=== PATIENT | female | born 1945 | race Caucasian/White ===

== ENCOUNTER 2017-04-01 09:23 | Observation (INO) | payer MEDICARE, BC ==
--- NOTE | ~2017-04-01 | DS ---
Unit #: [id number] #: [id number] Patient: NICOLAAS BLANCO [id number] [address] [id number] I MR#: [id number] NAME: NICOLASA BLANCO. ROOM: [facility] Age: 71 Sex: F Admission Date: 04/01/2017 : 1945 Discharge Date: 04/03/2017 Attending Physician: Leo Lazaro M.D. Primary Care Physician: No Primary Care Physician DISCHARGE SUMMARY DISCHARGE DIAGNOSES 1. Urinary tract infection. 2. Dizziness. 3. Reflux. 4. Hypertension. HOSPITAL COURSE The patient is a 71-year-old female who presents to [facility] emergency department complaining of some dizziness. She stated, additionally, that she had been having some dysuria and was on an antibiotic for a urinary tract infection but was not getting any better. Repeat UA in the emergency department showed what looked like continuing urinary tract infection and the patient was admitted for having failed outpatient therapy. The patient was started on Rocephin. At this time, she states that her dysuria has resolved. Given her resolution of dysuria on Rocephin, I will send her home on Keflex and followup on cultures which, at this time, only show Gram-negative rods without an available susceptibility. DISCHARGE MEDICATIONS 1. Lamictal 100 mg at bedtime. 2. Amitriptyline 75 mg at bedtime. 3. Zoloft 200 mg daily. 4. Abilify 5 mg daily. 5. Valium 10 mg p.o. q.i.d. as needed for anxiety. 6. Norvasc 10 mg daily. 7. Zocor 40 mg at bedtime. 8. Pepcid 40 mg at bedtime. 9. Tylenol #4 p.o. q.4 hours p.r.n. 10. Synthroid 100 mcg daily. 11. Keflex 500 mg, one p.o. t.i.d. x3 days. FOLLOWUP Patient to follow up with her primary care provider in one week. Dictated by... Leo Lazaro M.D. SERAFIN/ryan Unit #: [id number] #: [id number] Patient: NICOLASA BLANCO TD: 04/05/2017 07:33 JOB #: [id number] DISCHARGE SUMMARY Page 1 of 1 X Leo Lazaro MD X DISCHARGE SUMMARY
--- NOTE | ~2017-04-01 | EKG ---
PATIENT: NICOLASA BLANCO UNIT #: [id number] Ventricular Rate: 86 BPM Atrial Rate: 86 BPM P-R Interval: 134 ms QRS Duration: 84 ms Q-T Interval: 364 ms QTC Calculation(Bezet): 435 ms P [place]: 37 degrees Calculated R [place]: 53 degrees Calculated T [place]: 67 degrees Diagnosis Line: Normal sinus rhythm Diagnosis Line: Normal ECG Diagnosis Line: When compared with ECG of 09-NOV-2016 14:31, Diagnosis Line: No significant change was found Diagnosis Line: Confirmed by YANI FIGUEROA MD ([id number]) on Diagnosis Line: 04/01/2017 4:32:15 PM INTERPRETING MD: CAROLINA MAYORGA
--- NOTE | ~2017-04-01 | CR72 ---
[facility] A Service of [facility] RADIOLOGY TEXT RESULTS PATIENT: NICOLASA BLANCO LOCATION: [place] [address] : 43 UNIT #: [id number] AGE: [address]: Irene Neal MD SEX: F ORDER DR: [id number] [facility] [address] [place], [place] [address] [id number] E MR#: [id number] Acc #: [id number] NAME: NICOLASA BLANCO. : 1945 SEX: F STUDY DATE/TIME: 04/01/2017 10:01 UNIT: [facility] ROOM: STUDY DESCRIPTION: CR Chest Single View Portable Attending Physician: Niraj Aparicio D.O. Ordering Physician: Niraj Aparicio D.O. Primary Care Physician: No Primary Care Physician MEDICAL IMAGING REPORT This report is preliminary unless electronic signature is present EXAM Portable chest, 04/01/2017. HISTORY 71-year-old female with chest pain for 1 day. COMPARISON Chest, 06/19/2016. FINDINGS Frontal chest demonstrates patient significantly rotated to the right. Allowing for this, the lungs appear clear. No pneumothorax. Heart size and mediastinum are stable. IMPRESSION Rotated exam. Allowing for this, no acute chest findings. Dictated by... Jakub Horn M.D. THIS IS AN ELECTRONICALLY VERIFIED REPORT Jakub Horn M.D. at 04/02/2017 6:21 AM SHARAD/osvaldo TD: 04/01/2017 10:28 JOB #: [id number] MEDICAL IMAGING REPORT Page 1 of 1 COPY
--- NOTE | ~2017-04-01 | CT71 ---
[facility] A Service of [facility] RADIOLOGY TEXT RESULTS PATIENT: NICOLASA BLANCO LOCATION: [facility] 470-01 : 43 UNIT #: [id number] AGE: [address]: Irene Neal MD SEX: F ORDER DR: [id number] [facility] [address] [place], [place] [address] [id number] E MR#: [id number] Acc #: [id number] NAME: NICOLASA BLANCO : 1945 SEX: F STUDY DATE/TIME: 04/01/2017 11:07 UNIT: [facility] ROOM: STUDY DESCRIPTION: CT Head Wo Contrast Attending Physician: Niraj Aparicio D.O. Ordering Physician: Niraj Aparicio D.O. Primary Care Physician: No Primary Care Physician MEDICAL IMAGING REPORT This report is preliminary unless electronic signature is present EXAM Head CT without contrast. HISTORY Dizziness onset yesterday. TECHNIQUE Axial images were obtained without contrast and compared with 02/10/2014. This CT exam was performed with one or more of the following radiation dose reduction techniques: automatic exposure control, adjustment of mA and/or kV according to patient size, and iterative reconstruction. FINDINGS Mild atrophy is seen. There is no evidence of mass lesion, hemorrhage, or edema. An empty sella configuration is again noted and unchanged. Extraaxial structures are otherwise unremarkable. IMPRESSION Mild atrophy. Empty sella configuration. No acute findings and no changes since the previous scan. Dictated by... Orlando Sosa M.D. THIS IS AN ELECTRONICALLY VERIFIED REPORT Orlando Sosa M.D. at 04/02/2017 9:12 AM RLF/osvaldo TD: 04/01/2017 11:49 JOB #: [id number] [facility] A Service of [facility] & [facility] RADIOLOGY TEXT RESULTS PATIENT: NICOLASA BLANCO LOCATION: [facility] 470-01 : 43 UNIT #: [id number] AGE: [address]: Irene Neal MD SEX: F ORDER DR: MEDICAL IMAGING REPORT Page 1 of 1 COPY
--- NOTE | ~2017-04-01 | HP ---
Unit #: [id number] #: [id number] Patient: NICOLASA BLANCO [id number] [address] [address] [id number] I MR#: [id number] NAME: NICOLASA BLANCO. ROOM: [address] Age: 71 Sex: F Admission Date: 04/01/2017 : 1945 Attending Physician: Puja Jeffery M.D. Primary Care Physician: No Primary Care Physician HISTORY AND PHYSICAL CHIEF COMPLAINT Dizziness. HISTORY OF PRESENT ILLNESS The patient is a 71-year-old female with a history of hypertension, hyperlipidemia, hypothyroidism and depression, anxiety, brought to the emergency room complaining of dizziness. The patient described dizziness as a heaviness of the head. The patient also stated that the patient has microbic for urinary tract infection for the last nine days. The patient had a workup in the emergency room and was found to have a UTI with leukocyte esterase 1+, urine WBC of 5 to 10 and urine bacteria of 4+. The patient is being admitted for the above reasons. The patient has a history of benign positional vertigo and responded to meclizine. PAST MEDICAL HISTORY History of hypertension, hyperlipidemia, hypothyroidism, irritable bowel syndrome, GE reflux disease, depression, anxiety. PAST SURGICAL HISTORY Appendectomy, gallbladder surgery, partial hysterectomy, bladder repair and colonoscopy. SOCIAL HISTORY No history of smoking, alcohol or any illicit drug abuse. FAMILY HISTORY Remarkable for pancreatic cancer. ALLERGIES No known drug allergies. HOME MEDICATIONS 1. Abilify. 2. Zocor. 3. Zoloft. 4. Lamictal. 5. Synthroid. 6. Elavil. 7. Norvasc. 8. Pepcid. 9. Valium. 10. Tylenol #4. REVIEW OF SYSTEMS Unit #: [id number] #: [id number] Patient: NICOLASA BLANCO A 14-point review of systems was performed and only pertinent positive findings are described above. Remaining are negative. PHYSICAL EXAMINATION GENERAL APPEARANCE: The patient is sitting on a bed not in acute distress. VITAL SIGNS: Temperature 97.8. Pulse 93. Respiratory rate 16. Blood pressure 141/77. Sating 100% at room air. HEENT: Head: Atraumatic, normocephalic. ENT: Pupils equal, round, reacting to light and accommodation. Extraocular movements are intact. NECK: Supple. LUNGS: Decreased air entry at the bases. HEART: Regular rate and rhythm. ABDOMEN: Soft. Positive bowel sounds. EXTREMITIES: No cyanosis. No clubbing. NEUROLOGIC: Alert, awake, oriented. No gross focal motor deficit. DIAGNOSTIC STUDIES LABORATORY: Glucose 82, BUN 13, creatinine 0.6, sodium 140, potassium 4.2, chloride 102, bicarb 30, calcium 9.5, total protein 7.9, albumin 4.8, AST 20, ALT 16, alkaline phosphatase 76. WBC 8, hemoglobin 14.5, hematocrit 45.3, platelets 257. UA shows 1+ leukocyte esterase, 4+ bacteria, 5 to 10 urine WBCs. IMAGING: Chest x-ray shows no acute chest finding and CT of the had shows mild atrophy, empty sella configuration. No acute findings and no changes from the previous scan. CARDIOVASCULAR: EKG shows normal sinus rhythm. ASSESSMENT 1. Dizziness. 2. UTI. PLAN To admit the patient to observation. Continue with IV antibiotics with Rocephin and continue with the symptomatic care with meclizine and Zofran for the nausea and vomiting. Further recommendations will follow. Dictated by Nolvia Jo TD: 04/01/2017 17:07 JOB #: [id number] HISTORY AND PHYSICAL Page 1 of 1 X X HISTORY AND PHYSICAL
[~2017-04-01 09:23] MED LIST: ABILIFY PO; ABILIFY10 MG PO; ABILIFY5 MG PO; ACIPHEX20 MG PO; ALBUTEROL17 GM INH; AMITRIPTYLINE H75 MG PO; AMITRYPTYLINE PO; ANTIVERT PO; ASPIRIN81 MG PO; ATENOLOL PO; ATENOLOL25 MG PO; CARAFATE PO; CENTRUM PO; CIPRO PO; CIPRO250 MG PO; COREG PO; DARVOCET-N 1001 TAB PO; DIAZEPAM PO; FLAGYL PO; FLEXERIL10 MG PO; FLOMAX0.4 M1 PO; KAPIDEX60 MG PO; KROGER PHARMACY; LAMICTAL PO; LAMICTAL25 MG PO; LORTAB 5/500 TA1 TA1 PO; MACROBID 100 M100 MG PO; MECLIZINE HCL12.5 MG PO; MIRALAX255 GM PO; NAPROXEN PO; NEURONTIN PO; NORVASC PO; NORVASC2.5 MG PO; OMNICEF PO; PERCOCET PO; PHENERGAN PO; PHENERGAN25 MG PO; PRILOSEC20 MG PO; PROTONIX; PROTONIX PO; PYRIDIUM PO; SENNA PO; SKELAXIN PO; SYNTHROID PO; SYNTHROID0.1 MG PO; TALWIN NX TABLE1 TAB PO; TOPAMAX PO; TYLENOL #4 PO; TYLOX 5/500 CAP1 CAP PO; VALIUM10 MG PO; VICODIN 5/1 TAB 5/50 PO; VICODIN 5/500 T1 TAB PO; VICODIN PO; VITAMIN D50000 UNIT PO; ZANTAC150 M1 PO; ZITHROMAX PO; ZOCOR PO; ZOFRAN ODT4 MG PO; ZOFRAN PO; ZOLOFT PO; ZOLOFT100 MG PO
[2017-04-01 11:04] LABS: URINE SOURCE CLEAN CATCH
[2017-04-01 11:10] LABS: BASOPHIL# 0.1 X10e3 (0-0.3); BASOPHIL% 0.9 % (0-2.5); EOSINOPHIL# 0.2 X10e3 (0-0.7); EOSINOPHIL% 2.8 % (0.0-7.0); HEMATOCRIT 45.3 % (35.0-45.0); HEMOGLOBIN 14.5 gm/dL (12.0-16.0); LYMPHOCYTE# 2.7 X10e3 (1.0-3.5); LYMPHOCYTE% 33.2 % (17.0-45.0); MEAN CELL VOLUME 88.9 FL (83-96); MEAN CORPUSCULAR HEMOGLOBIN 28.5 PG (28-34); MEAN CORPUSCULAR HGB CONC 32.1 g/dL (30-36); MEAN PLATELET VOLUME 7.9 FL (6.5-11.5); MONOCYTE# 0.8 X10e3 (0-1.0); MONOCYTE% 10.4 % (3.0-12.0); NEUTROPHIL# 4.2 X10e3 (1.5-7.1); NEUTROPHIL% 52.7 % (40-75); PLATELET COUNT 257 X10e3 (140-420); RED CELL DISTRIBUTION WIDTH 14.5 % (11.0-15.5)
[2017-04-01 11:11] LABS: URINE APPEARANCE CLEAR; URINE BILIRUBIN NEG (NEG); URINE BLOOD NEG (NEG); URINE COLOR YELLOW; URINE GLUCOSE NEG (NEG); URINE KETONE NEG (NEG); URINE LEUKOCYTE ESTERASE 1+ (NEG); URINE NITRATE NEG (NEG); URINE PH 6.5 (5-8); URINE PROTEIN NEG (NEG); URINE SPECIFIC GRAVITY 1.009 (1.003-1.035); URINE UROBILINOGEN 0.2 MG/DL (NEG)
[2017-04-01 11:14] LABS: CULTURE INDICATED? YES; U HYALINE CASTS AUWI 0-2 /[LPF]; URBCS1 AUWI 0-2 /[HPF] (0-2); URINE BACTERIA AUWI 4+ (NEGATIVE); URINE SQUAMOUS EPITHELIAL CELL NONE SEEN /[HPF]
[2017-04-01 11:18] LABS: DIFF IND NO
[2017-04-01 11:23] LABS: POC - CKMB 1.1 ng/mL (0.0-7.9); POC - TROPONIN <0.05 ng/mL (<=0.05)
[2017-04-01 11:26] LABS: URINE AMORPHOUS SEDIMENT AMORP URATES
[2017-04-01 11:42] LABS: ALBUMIN SERUM 4.8 g/dL (3.5-5.0); BILIRUBIN, DIRECT 0.1 mg/dL (0.0-0.2); BILIRUBIN,INDIRECT 0.2 mg/dL (0.0-0.9); BILIRUBIN,TOTAL 0.3 mg/dL (0.2-2.0); BUN/CREATININE RATIO 21.66; CALCIUM SERUM 9.5 mg/dL (8.4-10.2); CREATININE SERUM 0.6 mg/dL (0.6-1.4); GLOM FILT RATE Estimated 90.4 mL/min (>60); POTASSIUM 4.2 mmol/L (3.5-5.1); PROTEIN TOTAL SERUM 7.9 g/dL (6.0-8.3)
[2017-04-01] MEDS ORDERED: ABILIFY5 MG PO (19:23)
[2017-04-01] MEDS ORDERED: ZOCOR PO (19:24)
[2017-04-01] MEDS ORDERED: ZOLOFT100 MG PO (19:26)
[2017-04-01] MEDS ORDERED: SYNTHROID PO (19:27)
[2017-04-01] MEDS ORDERED: LAMICTAL PO (19:27)
[2017-04-01] MEDS ORDERED: AMITRYPTYLINE (19:27)
[2017-04-01] MEDS ORDERED: AMITRYPTYLINE PO (19:28)
[2017-04-01] MEDS ORDERED: NORVASC10 MG PO (19:28)
[2017-04-01] MEDS ORDERED: PEPCID40 MG PO (19:29)
[2017-04-01] MEDS ORDERED: VALIUM10 M1 PO (19:31)
[2017-04-01] MEDS ORDERED: TYLENOL #4 PO (19:32)
[2017-04-02 02:42] LABS: BASOPHIL# 0.1 X10e3 (0-0.3); BASOPHIL% 1.1 % (0-2.5); EOSINOPHIL# 0.3 X10e3 (0-0.7); EOSINOPHIL% 2.8 % (0.0-7.0); HEMATOCRIT 39.4 % (35.0-45.0); HEMOGLOBIN 12.9 gm/dL (12.0-16.0); LYMPHOCYTE# 2.3 X10e3 (1.0-3.5); LYMPHOCYTE% 25.4 % (17.0-45.0); MEAN CORPUSCULAR HEMOGLOBIN 28.9 PG (28-34); MEAN CORPUSCULAR HGB CONC 32.9 g/dL (30-36); MEAN PLATELET VOLUME 7.9 FL (6.5-11.5); MONOCYTE# 0.8 X10e3 (0-1.0); MONOCYTE% 8.6 % (3.0-12.0); NEUTROPHIL# 5.6 X10e3 (1.5-7.1); NEUTROPHIL% 62.1 % (40-75); PLATELET COUNT 214 X10e3 (140-420); RED BLOOD COUNT 4.47 X10e (3.90-5.30); RED CELL DISTRIBUTION WIDTH 14.5 % (11.0-15.5)
[2017-04-02 02:44] LABS: DIFF IND NO
[2017-04-02 03:17] LABS: BUN/CREATININE RATIO 21.42; CALCIUM SERUM 8.7 mg/dL (8.4-10.2); CREATININE SERUM 0.7 mg/dL (0.6-1.4); POTASSIUM 3.7 mmol/L (3.5-5.1)
[2017-04-03] MEDS ORDERED: KEFLEX500 MG PO (12:31)
[2017-07-13] MEDS ORDERED: PANTOPRAZOLE SO40 MG PO (10:04)
[2017-07-13] MEDS ORDERED: ZOLOFT PO (10:06)
[2017-07-13] MEDS ORDERED: LAMICTAL100 MG PO (10:06)
[2017-07-13] MEDS ORDERED: AMITRIPTYLINE H75 MG PO (10:07)
[2017-07-13] MEDS ORDERED: ABILIFY5 MG PO (10:07)
[2017-07-13] MEDS ORDERED: LEVOTHYROXINE100 MCG PO (10:08)
[2017-07-13] MEDS ORDERED: SIMVASTATIN40 MG PO (10:08)
[2017-07-13] MEDS ORDERED: AMLODIPINE BESYL5 MG PO (10:11)
== END 2017-04-03 14:20 | disposition home or self-care (01) ==
LOC: CED 09:23 → CEDOF 14:51 → CED 16:15 → CEDOF 16:15 → C4C 21:25 → CEDOF 21:25 → C4C 04-02 05:38
PROVIDERS: Emergency Medicine; Internal Medicine
DX: N39.0 Urinary tract infection, site not specified (principal); B96.89 Other specified bacterial agents as the cause of diseases classified elsewhere; R42 Dizziness and giddiness; K21.9 Gastro-esophageal reflux disease without esophagitis; I10 Essential (primary) hypertension; Z80.0 Family history of malignant neoplasm of digestive organs; E03.9 Hypothyroidism, unspecified; Z90.711 Acquired absence of uterus with remaining cervical stump
CPT/HCPCS: 36415; 70450; 71010; 80048; 80076; 81003; 82553; 82947; 84484; 85025; 87086; 87088; 87186; 93005; 96360; 96372; 96374; 96376; 99285; G0378; J0696; J1650

== ENCOUNTER 2017-04-08 07:55 | Emergency (ER) | payer MEDICARE, BC ==
--- NOTE | ~2017-04-08 | CT4 ---
[facility] A Service [facility] RADIOLOGY TEXT RESULTS PATIENT: NICOLASA BLANCO LOCATION: [facility] : 43 UNIT #: [id number] AGE: [address]: Clarita Wells APRN SEX: F ORDER DR: [id number] [facility] [address] [place], [place] [address] [id number] E MR#: [id number] Acc #: [id number] NAME: NICOLASA BLANCO : 1945 SEX: F STUDY DATE/TIME: 04/08/2017 9:44 UNIT: [facility] ROOM: STUDY DESCRIPTION: CT Abd and Pelv Wo Cont Attending Physician: Clarita Wells A.P.R.N. Ordering Physician: Hemant Nieves M.D. MEDICAL IMAGING REPORT This report is preliminary unless electronic signature is present EXAM CT of the abdomen and pelvis without contrast INDICATIONS Burning and painful urination for 1 week. Low pelvic pain and low back pain. TECHNIQUE CT of the abdomen and pelvis was performed without contrast. Coronal and sagittal reformatted images were obtained. This CT exam was performed with one or more of the following radiation dose reduction techniques: automatic exposure control, adjustment of mA and/or kV according to patient size, and iterative reconstruction. COMPARISON 07/21/2016 FINDINGS There is mild atelectasis in the right lung base. Moderate sized hiatal hernia. Cholecystectomy. The liver and spleen are unremarkable. There are prominent bilateral extrarenal pelves but no evidence for hydronephrosis. No evidence of renal stone. The adrenal glands are unremarkable. The pancreas is unremarkable. PELVIS: The urinary bladder is unremarkable. The colon is unremarkable. Appendix surgically absent. Hysterectomy. Bone windows demonstrate degenerative changes lumbar spine. IMPRESSION 1. No evidence for renal stone or hydronephrosis. [facility] A Service of [facility] RADIOLOGY TEXT RESULTS PATIENT: NICOLASA BLANCO LOCATION: [facility] : 43 UNIT #: [id number] AGE: [address]: Clarita Wells APRN SEX: F ORDER DR: 2. Unremarkable appearance of the urinary bladder. 3. Prior cholecystectomy. Dictated by... Bruce Armando M.D. THIS IS AN ELECTRONICALLY VERIFIED REPORT Bruce Armando M.D. at 04/10/2017 12:37 PM Akshat TD: 04/08/2017 12:44 JOB #: [id number] MEDICAL IMAGING REPORT Page 1 of 1 COPY
--- NOTE | ~2017-04-08 | EKG ---
PATIENT: NICOLASA BLANCO UNIT #: [id number] Ventricular Rate: 93 BPM Atrial Rate: 93 BPM P-R Interval: 134 ms QRS Duration: 84 ms Q-T Interval: 364 ms QTC Calculation(Bezet): 452 ms P [place]: 41 degrees Calculated R [place]: 61 degrees Calculated T [place]: 77 degrees Diagnosis Line: Normal sinus rhythm Diagnosis Line: Nonspecific ST abnormality Diagnosis Line: Abnormal ECG Diagnosis Line: When compared with ECG of 01-APR-2017 09:53, Diagnosis Line: No significant change was found Diagnosis Line: Confirmed by ANAI PAUL MD ([id number]) on Diagnosis Line: 04/11/2017 3:14:23 PM INTERPRETING MD: BEVERLY MAYORGA
[~2017-04-08 07:55] MED LIST changes: +AMITRYPTYLINE; +KEFLEX500 MG PO; +NORVASC10 MG PO; +PEPCID40 MG PO; +VALIUM10 M1 PO
[2017-04-08] MEDS ORDERED: CIPRO (07:59)
[2017-04-08 08:15] LABS: URINE SOURCE CLEAN CATCH
[2017-04-08 08:38] LABS: URINE APPEARANCE CLEAR; URINE BILIRUBIN NEG (NEG); URINE BLOOD NEG (NEG); URINE COLOR YELLOW; URINE GLUCOSE NEG (NEG); URINE KETONE NEG (NEG); URINE LEUKOCYTE ESTERASE TRACE (NEG); URINE NITRATE NEG (NEG); URINE PROTEIN 1+ (NEG); URINE SPECIFIC GRAVITY 1.013 (1.003-1.035); URINE UROBILINOGEN 0.2 MG/DL (NEG)
[2017-04-08 08:41] LABS: CULTURE INDICATED? YES; URBCS1 AUWI 0-2 /[HPF] (0-2); URINE BACTERIA AUWI NEG (NEGATIVE); URINE SQUAMOUS EPITHELIAL CELL OCC /[HPF]
[2017-04-08 09:02] LABS: BASOPHIL# 0.1 X10e3 (0-0.3); BASOPHIL% 0.7 % (0-2.5); EOSINOPHIL# 0.1 X10e3 (0-0.7); EOSINOPHIL% 1.7 % (0.0-7.0); HEMATOCRIT 41.4 % (35.0-45.0); HEMOGLOBIN 13.4 gm/dL (12.0-16.0); LYMPHOCYTE# 1.9 X10e3 (1.0-3.5); LYMPHOCYTE% 24.4 % (17.0-45.0); MEAN CELL VOLUME 88.5 FL (83-96); MEAN CORPUSCULAR HEMOGLOBIN 28.6 PG (28-34); MEAN CORPUSCULAR HGB CONC 32.4 g/dL (30-36); MEAN PLATELET VOLUME 8.3 FL (6.5-11.5); MONOCYTE# 0.8 X10e3 (0-1.0); MONOCYTE% 10.6 % (3.0-12.0); NEUTROPHIL# 4.9 X10e3 (1.5-7.1); NEUTROPHIL% 62.6 % (40-75); PLATELET COUNT 237 X10e3 (140-420); RED BLOOD COUNT 4.68 X10e (3.90-5.30); RED CELL DISTRIBUTION WIDTH 14.1 % (11.0-15.5); WHITE BLOOD COUNT 7.8 X10e3 (4.0-10.5)
[2017-04-08 09:03] LABS: POC - CKMB 1.3 ng/mL (0.0-7.9); POC - TROPONIN <0.05 ng/mL (<=0.05)
[2017-04-08 09:04] LABS: DIFF IND NO
[2017-04-08 09:34] LABS: ALBUMIN SERUM 4.3 g/dL (3.5-5.0); ALKALINE PHOSPHATASE 70 U/L (32-92); ALT (SGPT) 18 U/L (10-40); AMYLASE 8 U/L (0-46); AST (SGOT) 21 U/L (10-42); BILIRUBIN,TOTAL 0.3 mg/dL (0.2-2.0); BLOOD UREA NITROGEN 13 mg/dL (9-23); BUN/CREATININE RATIO 21.66; CALCIUM SERUM 9.2 mg/dL (8.4-10.2); CARBON DIOXIDE 26 mmol/L (22-31); CHLORIDE 106 mmol/L (100-111); CREATININE SERUM 0.6 mg/dL (0.6-1.4); GLOM FILT RATE Estimated 90.4 mL/min (>60); GLUCOSE FASTING 76 mg/dL (70-110); LIPASE 16 U/L (22-51); POTASSIUM 3.8 mmol/L (3.5-5.1); PROTEIN TOTAL SERUM 6.9 g/dL (6.0-8.3); SODIUM 139 mmol/L (135-145)
[2017-04-08 09:36] LABS: BILIRUBIN, DIRECT <0.1 mg/dL (0.0-0.2); BILIRUBIN,INDIRECT 0.2 mg/dL (0.0-0.9)
[2017-04-08 10:31] LABS: POC - CKMB 1.2 ng/mL (0.0-7.9); POC - TROPONIN <0.05 ng/mL (<=0.05)
[2017-07-13] MEDS ORDERED: PANTOPRAZOLE SO40 MG PO (10:04)
[2017-07-13] MEDS ORDERED: ZOLOFT PO (10:06)
[2017-07-13] MEDS ORDERED: LAMICTAL100 MG PO (10:06)
[2017-07-13] MEDS ORDERED: AMITRIPTYLINE H75 MG PO (10:07)
[2017-07-13] MEDS ORDERED: ABILIFY5 MG PO (10:07)
[2017-07-13] MEDS ORDERED: LEVOTHYROXINE100 MCG PO (10:08)
[2017-07-13] MEDS ORDERED: SIMVASTATIN40 MG PO (10:08)
[2017-07-13] MEDS ORDERED: AMLODIPINE BESYL5 MG PO (10:11)
== END 2017-04-08 11:03 | disposition home or self-care (01) ==
LOC: CED 07:55
PROVIDERS: Emergency Medicine; Nurse Practitioner
DX: N39.0 Urinary tract infection, site not specified (principal); K21.9 Gastro-esophageal reflux disease without esophagitis; I10 Essential (primary) hypertension; E78.5 Hyperlipidemia, unspecified; F41.9 Anxiety disorder, unspecified; F32.9 Major depressive disorder, single episode, unspecified; K58.9 Irritable bowel syndrome, unspecified; Z79.899 Other long term (current) drug therapy; Z90.49 Acquired absence of other specified parts of digestive tract; Z90.710 Acquired absence of both cervix and uterus; Z98.890 Other specified postprocedural states; Z88.1 Allergy status to other antibiotic agents; Z88.8 Allergy status to other drugs, medicaments and biological substances
CPT/HCPCS: 36415; 74176; 80048; 80076; 81003; 82150; 82553; 83605; 83690; 84484; 85025; 87086; 93005; 96361; 96374; 96375; 99284; J0696

== ENCOUNTER 2017-04-11 09:42 | Emergency (ER) | payer MEDICARE, BC ==
--- NOTE | ~2017-04-11 | CT2 ---
[facility] A Service of [facility] & [facility] RADIOLOGY TEXT RESULTS PATIENT: NICOLASA BLANCO LOCATION: [facility] : 43 UNIT #: [id number] AGE: [address]: Celestine Lee MD SEX: F ORDER DR: [id number] [facility] [address] [place], [place] [address] [id number] E MR#: [id number] Acc #: [id number] NAME: NICOLASA BLANCO. : 1945 SEX: F STUDY DATE/TIME: 04/11/2017 UNIT: [facility] ROOM: STUDY DESCRIPTION: CT Abd and Pelv W Cont Attending Physician: Celestine Lee M.D. Ordering Physician: Celestine Lee M.D. Primary Care Physician: Primary Care Physician No MEDICAL IMAGING REPORT This report is preliminary unless electronic signature is present EXAM CT abdomen and pelvis with contrast 04/11/2017 12:56 hours CLINICAL HISTORY 71-year-old woman with abdominal pain, burning when urinating for 5-6 weeks, nausea and vomiting. COMPARISON 04/08/[address] images were obtained from the lung bases through the pubic symphysis with intravenous contrast only. Sagittal and coronal reconstructions were performed. The CT exam was performed with one or more of the following radiation dose reduction techniques: automatic exposure control, adjustment of mA and/or kV according to patient size, and iterative reconstruction. FINDINGS Images through the lung bases demonstrate stable linear scarring right greater than left lung base unchanged from 04/08/2017. There is no pleural effusion. Small to moderate hiatal hernia is unchanged. Images through the abdomen demonstrate mild intra and extrahepatic bile duct dilatation with common bile duct measuring up to 1.8 cm. This has increased from 1.2 cm om 04/08/2017. There is no definite distal left ureteral stone although there is some heterogeneity seen and tiny stones or sand-like stones or sludge in the distal common bile duct cannot be excluded. (Image 33 series 2. The pancreas and pancreatic duct are normal. The adrenal glands are normal. The kidneys demonstrate no mass or stone. There is no dilatation or evidence of pyelonephritis. The abdominal aorta is normal in caliber. [facility] [email or web address] A Service of [facility] RADIOLOGY TEXT RESULTS PATIENT: NICOLASA BLANCO [id number] 43 UNIT #: [id number] AGE: [address]: Celestine Lee MD SEX: F ORDER DR: The stomach is normal other than the hiatal hernia. There is no small bowel distension or small bowel wall thickening. The cecum and terminal ileum are normal. The appendix is surgically absent. There is a small to moderate amount of stool throughout the colon without definite colonic wall thickening. CT pelvis demonstrates a distended bladder. The uterus is surgically absent. I do not discriminate ovaries. There is no mass or fluid. The lumbar spine demonstrates stable degenerative disc disease. There is no fracture or malalignment. IMPRESSION 1. No renal or ureteral calculi. There is no mass or evidence of pyelonephritis. 2. The patient is status post cholecystectomy and there is intra and extrahepatic bile duct dilatation which appears increased from 04/08/2017. Common bile duct measures up to 1.8 cm at the level of which it measured 1.2 cm on 04/08/2017. There does appear to be some sort of debris or heterogeneity within the common bile duct closer to the head of the pancreas which could represent sand-like stones or debris. Correlate with liver function tests and bilirubin level. Consider ERCP if warranted. 3. No distension or wall thickening seen in the small bowel or colon. The appendix is surgically absent. 4. Negative CT pelvis. Dictated by... Romelia Mina M.D. THIS IS AN ELECTRONICALLY VERIFIED REPORT Romelia Mina M.D. at 04/12/2017 9:36 AM LIZ/carmen TD: 04/11/2017 15:29 JOB #: [id number] MEDICAL IMAGING REPORT Page 1 of 1 COPY
[~2017-04-11 09:42] MED LIST changes: +CIPRO
[2017-04-11 10:34] LABS: URINE SOURCE CLEAN CATCH
[2017-04-11 10:39] LABS: BASOPHIL% 0.7 % (0-2.5); EOSINOPHIL# 0.2 X10e3 (0-0.7); EOSINOPHIL% 2.2 % (0.0-7.0); HEMATOCRIT 41.2 % (35.0-45.0); HEMOGLOBIN 13.4 gm/dL (12.0-16.0); LYMPHOCYTE% 27.9 % (17.0-45.0); MEAN CELL VOLUME 88.4 FL (83-96); MEAN CORPUSCULAR HEMOGLOBIN 28.8 PG (28-34); MEAN CORPUSCULAR HGB CONC 32.5 g/dL (30-36); MEAN PLATELET VOLUME 8.4 FL (6.5-11.5); MONOCYTE# 0.7 X10e3 (0-1.0); MONOCYTE% 10.1 % (3.0-12.0); NEUTROPHIL# 4.2 X10e3 (1.5-7.1); NEUTROPHIL% 59.1 % (40-75); PLATELET COUNT 251 X10e3 (140-420); RED BLOOD COUNT 4.66 X10e (3.90-5.30); WHITE BLOOD COUNT 7.1 X10e3 (4.0-10.5)
[2017-04-11 10:40] LABS: DIFF IND NO
[2017-04-11 10:42] LABS: URINE APPEARANCE CLEAR; URINE BILIRUBIN NEG (NEG); URINE BLOOD NEG (NEG); URINE COLOR DK YELLOW; URINE GLUCOSE NEG (NEG); URINE KETONE NEG (NEG); URINE LEUKOCYTE ESTERASE NEG (NEG); URINE NITRATE NEG (NEG); URINE PH 6.5 (5-8); URINE PROTEIN NEG (NEG); URINE SPECIFIC GRAVITY 1.011 (1.003-1.035); URINE UROBILINOGEN 0.2 MG/DL (NEG)
[2017-04-11 10:49] LABS: CULTURE INDICATED? NO
[2017-04-11 11:17] LABS: ALBUMIN SERUM 4.3 g/dL (3.5-5.0); BILIRUBIN, DIRECT 0.1 mg/dL (0.0-0.2); BILIRUBIN,TOTAL 0.1 mg/dL (0.2-2.0); BUN/CREATININE RATIO 22.85; CALCIUM SERUM 9.1 mg/dL (8.4-10.2); CREATININE SERUM 0.7 mg/dL (0.6-1.4); POTASSIUM 4.2 mmol/L (3.5-5.1); PROTEIN TOTAL SERUM 7.2 g/dL (6.0-8.3)
[2017-07-13] MEDS ORDERED: PANTOPRAZOLE SO40 MG PO (10:04)
[2017-07-13] MEDS ORDERED: LAMICTAL100 MG PO (10:06)
[2017-07-13] MEDS ORDERED: ZOLOFT PO (10:06)
[2017-07-13] MEDS ORDERED: ABILIFY5 MG PO (10:07)
[2017-07-13] MEDS ORDERED: AMITRIPTYLINE H75 MG PO (10:07)
[2017-07-13] MEDS ORDERED: LEVOTHYROXINE100 MCG PO (10:08)
[2017-07-13] MEDS ORDERED: SIMVASTATIN40 MG PO (10:08)
[2017-07-13] MEDS ORDERED: AMLODIPINE BESYL5 MG PO (10:11)
== END 2017-04-11 14:45 | disposition home or self-care (01) ==
LOC: CED 09:42
PROVIDERS: Emergency Medicine
DX: R10.30 Lower abdominal pain, unspecified (principal); R11.0 Nausea; I10 Essential (primary) hypertension; Z90.49 Acquired absence of other specified parts of digestive tract; Z90.89 Acquired absence of other organs; Z79.899 Other long term (current) drug therapy
CPT/HCPCS: 36415; 74177; 80048; 80076; 81003; 82150; 83690; 85025; 96374; 96375; 96376; 99284; J2270; J2405; Q9967

== ENCOUNTER 2017-04-14 10:08 | Emergency (ER) | payer MEDICARE, BC ==
[2017-04-14 12:07] LABS: URINE SOURCE CLEAN CATCH
[2017-04-14 12:17] LABS: URINE APPEARANCE CLEAR; URINE BILIRUBIN NEG (NEG); URINE BLOOD NEG (NEG); URINE COLOR YELLOW; URINE GLUCOSE NEG (NEG); URINE KETONE NEG (NEG); URINE LEUKOCYTE ESTERASE TRACE (NEG); URINE NITRATE NEG (NEG); URINE PH 7.5 (5-8); URINE PROTEIN NEG (NEG); URINE SPECIFIC GRAVITY 1.005 (1.003-1.035); URINE UROBILINOGEN 0.2 MG/DL (NEG)
[2017-04-14 12:19] LABS: URINE BACTERIA AUWI NEG (NEGATIVE); URINE SQUAMOUS EPITHELIAL CELL NONE SEEN /[HPF]
[2017-04-14 13:10] LABS: CULTURE INDICATED? NO
[2017-07-13] MEDS ORDERED: PANTOPRAZOLE SO40 MG PO (10:04)
[2017-07-13] MEDS ORDERED: ZOLOFT PO (10:06)
[2017-07-13] MEDS ORDERED: LAMICTAL100 MG PO (10:06)
[2017-07-13] MEDS ORDERED: AMITRIPTYLINE H75 MG PO (10:07)
[2017-07-13] MEDS ORDERED: ABILIFY5 MG PO (10:07)
[2017-07-13] MEDS ORDERED: LEVOTHYROXINE100 MCG PO (10:08)
[2017-07-13] MEDS ORDERED: SIMVASTATIN40 MG PO (10:08)
[2017-07-13] MEDS ORDERED: AMLODIPINE BESYL5 MG PO (10:11)
== END 2017-04-14 14:24 | disposition home or self-care (01) ==
LOC: CED 10:08
PROVIDERS: Emergency Medicine
DX: R10.819 Abdominal tenderness, unspecified site (principal); R30.0 Dysuria; R11.0 Nausea; Z90.710 Acquired absence of both cervix and uterus; Z90.49 Acquired absence of other specified parts of digestive tract
CPT/HCPCS: 81003; 99283

== ENCOUNTER 2017-05-16 06:39 | Observation (INO) | payer MEDICARE, BC ==
--- NOTE | ~2017-05-16 | CT2 ---
[facility] A Service of [facility] RADIOLOGY TEXT RESULTS PATIENT: NICOLASA BLANCO LOCATION: [facility] 570-01 : 43 UNIT #: [id number] AGE: [address]: Leo Lazaro MD SEX: F ORDER DR: [id number] [facility] [address] [place], [place] [address] [id number] I MR#: [id number] Acc #: [id number] NAME: NICOLASA BLANCO. : 1945 SEX: F STUDY DATE/TIME: 05/16/2017 8:49 UNIT: [facility] ROOM: [facility] STUDY DESCRIPTION: CT Abd and Pelv W Cont Attending Physician: Ngozi Ramos M.D. Ordering Physician: Jeanette Ramirez M.D. Primary Care Physician: No Primary Care Physician MEDICAL IMAGING REPORT This report is preliminary unless electronic signature is present EXAM CT of abdomen and pelvis with contrast. HISTORY Periumbilical abdominal pain onset this morning. History of prior appendectomy, cholecystectomy, hysterectomy. COMPARISON CT of abdomen and pelvis 04/11/2017. TECHNIQUE Axial images performed through the abdomen and pelvis following IV contrast. Multiplanar reconstructed images reviewed at a workstation. This CT exam was performed with one or more of the following radiation dose reduction techniques: automatic exposure control, adjustment of mA and/or kV according to patient size, and iterative reconstruction. FINDINGS ABDOMEN: Lung bases unremarkable. Moderate sized hiatal hernia. There is a small amount of left basilar atelectasis. Liver and spleen unremarkable except for mild prominence of the common bile duct and mild intrahepatic ductal dilatation in this patient post cholecystectomy. This has been noted on prior studies, does not appear significantly changed. No definite retained stone. Pancreas, kidneys and adrenal glands unremarkable. No free air or free fluid. The visualized GI tract appears normal. PELVIS: Bladder is mildly distended. Uterus surgically absent. Osseous structures remarkable for L2-3 degenerative disc changes. Mild generalized obesity. IMPRESSION 1. No acute intraabdominal or intrapelvic pathology identified. Study [facility] A Service of [facility] RADIOLOGY TEXT RESULTS PATIENT: NICOLASA BLANCO LOCATION: [facility] 570-01 : 43 UNIT #: [id number] AGE: [address]: Leo Lazaro MD SEX: F ORDER DR: is essentially unchanged from CT abdomen and pelvis 04/11/2017. 2. Mild distension of the common bile duct and mild prominence of the intrahepatic ducts but not unexpected in this patient post-cholecystectomy. No obstructing lesions identified and this also remains stable from prior exams. Dictated by... Izaiah Armando M.D. THIS IS AN ELECTRONICALLY VERIFIED REPORT Izaiah Armando M.D. at 05/17/2017 12:29 PM JESUS/jamison TD: 05/16/2017 22:32 JOB #: [id number] MEDICAL IMAGING REPORT Page 1 of 1 COPY
--- NOTE | ~2017-05-16 | CO ---
Unit #: [id number] #: [id number] Patient: NICOLASA BLANCO [id number] [address] [address] [id number] I MR#: [id number] NAME: NICOLASA BLANCO. ROOM: 570 Age: 72 Sex: F Admission Date: 05/16/2017 : 1945 Attending Physician: Leo Lazaro M.D. Primary Care Physician: Monisha Primary Care Physician Requesting Physician: Ngozi Ramos M.D. Consultation Date: 05/17/2017 CONSULTATION REPORT REASON FOR CONSULTATION Mid upper abdominal pain and abnormal LFTs. HISTORY Ms. Blanco is a very pleasant 72-year-old white female. She states she was drinking coffee yesterday in the morning and had sudden severe and intense pain in the mid epigastric area. The pain was quite intense and did not radiate to the back. The patient denies any similar pain or any pain in the upper abdomen in the past. There is no history of preceding retrosternal ascending heartburn or postprandial dyspepsia. Her lab evaluation showed elevated LFTs from baseline and a CT of the abdomen that shows post cholecystectomy CBD but mildly dilated. Patient had no history of fever, chills or rigors. PAST MEDICAL HISTORY Significant for history of hypertension, hyperlipidemia, hypothyroidism, gastroesophageal reflux, depression, anxiety, and urinary tract infection. She also has a history of irritable bowel syndrome. PAST SURGICAL HISTORY Previous surgeries include a cholecystectomy, hysterectomy, appendectomy, bladder suspension surgery. SOCIAL HISTORY The patient does not smoke or drink alcohol. MEDICATIONS AT HOME Abilify, Zocor, Zoloft, Lamictal, Synthroid, amitriptyline, Norvasc, Pepcid, Valium, Tylenol, codeine #4, and ciprofloxacin. She has no known drug allergies. FAMILY HISTORY Significant for pancreatic cancer. There is no family history of colon, pancreatic cancer, or liver disease. REVIEW OF SYSTEMS A detailed review of organ system does not reveal any recent weight loss. No history of fevers, chills or rigors. No history of headaches, seizures, chest pain or syncope. No history of cough, expectoration, or hemoptysis. No history of dysuria, hematuria or pyuria. No history of focal seizures or extremity weakness. The rest of the organ system is unremarkable. PHYSICAL EXAMINATION Unit #: [id number] #: [id number] Patient: NICOLASA BLANCO GENERAL: She is alert and oriented, and appears comfortable. VITAL SIGNS: Stable with a temperature of 98.0, pulse 86 per minute and regular, respiratory rate is 18. Blood pressure is 116/54. She weighs 160 pounds and appears well nourished. HEENT: She has mild pallor, icterus, lymphadenopathy or peripheral edema. CARDIOVASCULAR: Normal heart sounds. No murmurs of auscultation. LUNGS: Normal breath sounds. Good air entry. ABDOMEN: Soft and nontender. Liver and spleen are not palpable. Bowel sounds normal. DIAGNOSTIC STUDIES LAB EVALUATION: Shows a normal BUN, creatinine and electrolytes. The only abnormality being a spike in AST, ALT, and alk phos. The baseline values were 19, 18 and 66 and they are now 176, 77, and 150, respectively. IMAGING STUDIES: CT scan of the abdomen and pelvis shows mild dilation of the common bile duct and this is consistent with post cholecystectomy state; however, a common bile duct stone cannot be ruled out. CLINICAL IMPRESSION The patient's history of sudden and severe intense pain in the mid upper abdomen, along with elevated liver function studies are highly suggestive of a distal common bile duct stone that might have (1) in the bile duct. An upper endoscopy and ERCP is indicated and will scheduled later today. Pros and cons of procedure, potential risk of complications including possibly a perforation, bleeding, complication, sedation and pancreatitis were discussed with patient and she was reassured. Thank you very much for asking me to see this pleasant patient. Dictated by... Nolvia Powell/sonya TD: 05/17/2017 11:23 JOB #: [id number] CONSULTATION REPORT Page 1 of 1 X Bert Mcfadden MD CONSULTATION REPORT
--- NOTE | ~2017-05-16 | CR72 ---
[facility] A Service of [facility] RADIOLOGY TEXT RESULTS PATIENT: NICOLASA BLANCO LOCATION: [facility] [id number] : 43 UNIT #: [id number] AGE: [address]: Leo Lazaro MD SEX: F ORDER DR: [id number] [facility] [address] [facility]. [place], [place] [address] [id number] I MR#: [id number] Acc #: [id number] NAME: NICOLASA BLANCO. : 1945 SEX: F STUDY DATE/TIME: 05/16/2017 7:43 UNIT: [facility] ROOM: [facility] STUDY DESCRIPTION: CR Chest Single View Portable Attending Physician: Ngozi Ramos M.D. Ordering Physician: Jeanette Ramirez M.D. Primary Care Physician: Primary Care Physician No MEDICAL IMAGING REPORT This report is preliminary unless electronic signature is present EXAM Portable chest HISTORY Abdominal pain and shortness of air x2 days. COMPARISON 04/01/2017 FINDINGS Patient is rotated to the right. No infiltrates or effusions. Heart and mediastinum unremarkable except for a sizable air-filled middle mediastinal density consistent with a moderate sized hiatal hernia. Evidence of old granulomatous disease. No invasive tubes or lines. No pneumothorax. Dictated by... Izaiah Armando M.D. THIS IS AN ELECTRONICALLY VERIFIED REPORT Izaiah Armando M.D. at 05/17/2017 12:29 PM JESUS/federico TD: 05/16/2017 21:54 JOB #: [id number] MEDICAL IMAGING REPORT Page 1 of 1 COPY
--- NOTE | ~2017-05-16 | OR ---
Unit #: [id number] #: [id number] Patient: NICOLASA BLANCO [id number] [address] [address] [id number] I MR#: [id number] NAME: NICOLASA BLANCO. ROOM: 226 Date of Procedure: 05/17/2017 Admission Date: 05/16/2017 Surgeon: Bert Mcfadden M.D. : 1945 Attending Physician: Leo Lazaro M.D. Primary Care Physician: Primary Care Physician No OPERATIVE REPORT ADDITIONAL ATTENDING PHYSICIAN Dr. Leo Lazaro. PREOPERATIVE DIAGNOSES The patient has presented with history of lower sternal pain radiating to the back along with elevated LFTs and mildly dilated common bile duct all consistent with distal common bile duct stone. She is status post remote cholecystectomy. PROCEDURES PERFORMED 1. Endoscopic retrograde cholangiopancreatography and stone extraction. 2. Endoscopic retrograde cholangiopancreatography and biliary stent placement. POSTOPERATIVE DIAGNOSES 1. Due to a hiatus hernia, the cannulation of the common bile duct was somewhat challenging and was achieved after putting abdominal pressure and maintaining it during the procedure. 2. The major papilla and ampullary area was normal with normal biliary drainage. 3. The common bile duct was markedly dilated, in fact the proximal and mid CBD was about 20 mm in size and the distal common bile duct was about 9 to 10 mm in size. 4. The patient had common bile duct stone as well as papillary stenosis. 5. After a sphincterotomy, the duct was swept with a 9 to 12 mm retrieval balloon. Copious amounts of bile were seen emitting from the ampullary orifice; although, no stone was seen passing into the duodenum, a stone was recovered in the suction channel of the scope at the end of the procedure. A 10-Indonesian 7-cm biliary stent was deployed to help with decompression of the bile duct. The patient will require a repeat ERCP in 8 to 10 weeks' time. SEDATION USED MAC. DESCRIPTION OF PROCEDURE Following detailed explanation of potential risks and complications of an ERCP namely perforation, bleeding, complication related to sedation, and pancreatitis, the patient was brought to GI lab and laid in the left semiprone position. Sedation using MAC was given. Lateral-viewing duodenoscope was advanced through the oral cavity into the esophagus and advanced into the stomach. Pylorus was intubated in the usual fashion. Unit #: [id number] #: [id number] Patient: NICOLASA BLANCO The scope was advanced in deep descending duodenum. Upon shortening the scope, major papilla and ampulla area was visualized. Getting good position of the ampullary area was impossible as a result of patient's anatomy with a long loop in the stomach. This was circumvented by putting abdominal pressure with an switchboard operator assistant during the procedure. The common bile duct was cannulated using guidewire based technique and the guidewire was advanced in the CBD. Contrast cholangiogram was then obtained. The patient was noted to have tapered ending of the distal CBD, but the proximal and mid CBD was dilated up to 20 mm. A sphincterotomy was then performed and the duct was swept with a 9 to 12 mm retrieval balloon at 12 mm settings multiples times; although, no stone was seen delivering into the duodenum. A single stone was found captured in the suction channel of the scope towards the end of the procedure. Copious amounts of bile were delivered in the duodenum. A 10-Indonesian 7-cm biliary stent was then deployed to ensure continuity of the drainage. The scope and the accessories were then withdrawn and the patient returned to the recovery area. She tolerated the procedure without any postprocedure complications. Dictated by... Nolvia Powell/jonny TD: 05/18/2017 14:54 JOB #: [id number] OPERATIVE REPORT Page 1 of 1 X Bert Mcfadden MD X PROCEDURE OPERATIVE NOTE
--- NOTE | ~2017-05-16 | CR84 ---
[facility] A Service of [facility] RADIOLOGY TEXT RESULTS PATIENT: NICOLASA BLANCO LOCATION: C2A 226- : 43 UNIT #: [id number] AGE: [address]: Leo Lazaro MD SEX: F ORDER DR: [id number] [facility] [address] [place], [place] [address] [id number] I MR#: [id number] Acc #: [id number] NAME: NICOLASA BLANCO. : 1945 SEX: F STUDY DATE/TIME: 05/17/2017 17:33 UNIT: [facility] ROOM: [facility] STUDY DESCRIPTION: CR ERCP Biliary and Pancr SI Attending Physician: Leo Lazaro M.D. Ordering Physician: Bert Mcfadden M.D. Primary Care Physician: No Primary Care Physician MEDICAL IMAGING REPORT This report is preliminary unless electronic signature is present EXAM ERCP 05/17/2017. HISTORY Common bile duct dilatation on CT scan of the abdomen and pelvis 05/16/2017. Periumbilical abdominal pain, 05/16/2017, with history of prior cholecystectomy. ERCP performed to evaluate for common bile duct stones. FINDINGS ERCP was performed by Dr. Mcfadden. Seven spot film radiographs of the upper abdomen were obtained and 1 minute 32 seconds of fluoroscopy time was utilized. Surgical clips right upper quadrant suggest prior cholecystectomy. The pancreatic duct was not injected. Contrast injection of the biliary tree shows dilatation of the common bile duct. Air bubbles were seen within the duct. There is normal contrast drainage into the duodenum. The distal common bile duct near the sphincter of Oddi was normal. Sphincterotomy was performed by Dr. Mcfadden. Balloon catheter was pulled retrograde through the duct but no stones were obtained. A stent was then placed in the common duct. Dictated by... Terrence Gibbs M.D. THIS IS AN ELECTRONICALLY VERIFIED REPORT Terrence Gibbs M.D. at 05/23/2017 2:09 PM KRT/moise TD: 05/22/2017 13:32 JOB #: [id number] MEDICAL IMAGING REPORT Page 1 of 1 COPY
--- NOTE | ~2017-05-16 | DS ---
Unit #: [id number] #: [id number] Patient: NICOLASA BLANCO [id number] [address] [address] [id number] I MR#: [id number] NAME: NICOLASA BLANCO. ROOM: 226 Age: 72 Sex: F Admission Date: 05/16/2017 : 1945 Discharge Date: 05/18/2017 Attending Physician: Leo Lazaro M.D. Primary Care Physician: No Primary Care Physician DISCHARGE SUMMARY DISCHARGE DIAGNOSES 1. Common bile duct obstruction. 2. Abdominal pain. 3. Hepatitis. HOSPITAL COURSE The patient is a 72-year-old female who presented to [facility] Emergency Department secondary to abrupt onset of severe upper quadrant abdominal pain. She presented to the emergency department and was noted to have elevations in her AST and ALT to 176 and 77 respectively. Alkaline phosphatase was 150. Patient's pain was controlled with morphine and she was admitted to the hospital. Patient underwent CT of the abdomen which showed some mild distention of the common bile duct and mild prominence of intrahepatic ducts but this was noted to be similar to a CT done on April 11, 2017. As a result, it was felt to be nothing acute. However, given the acute onset of her pain, the patient was seen by GI and taken for ERCP. At which time, she was noted to have a single pigmented stone which was removed and two stents were placed. At this time, patient states her pain is very nearly gone. She states that she feels much better after the procedure and is tolerating a diet without difficulty. As a result, the patient is being discharged home. DISCHARGE MEDICATIONS 1. Lamictal 100 mg p.o. nightly. 2. Amitriptyline 75 mg p.o. nightly. 3. Zoloft 200 mg p.o. daily. 4. Abilify 5 mg p.o. daily. 5. Valium 10 mg p.o. q.i.d. as needed for anxiety. 6. Norvasc 10 mg daily. 7. Zocor 40 mg p.o. nightly. 8. Tylenol with codeine #4 one p.o. q.4 hours p.r.n. 9. Protonix 40 mg p.o. daily. 10. Synthroid 100 mcg p.o. daily. FOLLOWUP The patient should follow up with Dr. Mcfadden in one to two weeks. Dictated by... Unit #: [id number] #: [id number] Patient: NICOLASA BLANCO M.D. CAM/ TD: 05/18/2017 13:28 JOB #: [id number] DISCHARGE SUMMARY Page 1 of 1 X Leo Lazaro MD X DISCHARGE SUMMARY
--- NOTE | ~2017-05-16 | EKG ---
PATIENT: NICOLASA BLANCO UNIT #: [id number] Ventricular Rate: 90 BPM Atrial Rate: 90 BPM P-R Interval: 136 ms QRS Duration: 92 ms Q-T Interval: 390 ms QTC Calculation(Bezet): 477 ms P Valentine: 44 degrees Calculated R Valentine: 54 degrees Calculated T Valentine: 76 degrees Diagnosis Line: Normal sinus rhythm Diagnosis Line: Normal ECG Diagnosis Line: When compared with ECG of 08-APR-2017 08:33, Diagnosis Line: No significant change was found Diagnosis Line: Confirmed by STEPHEN DE LA CRUZ MD ([id number]) on 05/17/2017 Diagnosis Line: 3:01:30 PM INTERPRETING MD: DOROTHY MAYORGA
--- NOTE | ~2017-05-16 | OR ---
Unit #: [id number] #: [id number] Patient: NICOLASA BLANCO [id number] [address] [address] [id number] I MR#: [id number] NAME: NICOLASA BLANCO. ROOM: 226 Date of Procedure: 05/17/2017 Admission Date: 05/16/2017 Surgeon: Bert Mcfadden M.D. : 1945 Attending Physician: Leo Lazaro M.D. OPERATIVE REPORT ADDITIONAL ATTENDING PHYSICIAN Dr. Leo Lazaro. PREOPERATIVE DIAGNOSES Dyspepsia and epigastric pain. PROCEDURES PERFORMED Upper gastrointestinal endoscopy and biopsy as well as upper gastrointestinal endoscopy and a dilation. POSTOPERATIVE DIAGNOSES 1. The patient had distal esophageal tight stricture. This was dilated using a 15 to 18 mm TTS balloon. 2. Qhdh-un-jyncankb prepyloric antral erosive gastritis. A biopsy was obtained from the antrum for CLOtest. 3. Small hiatus hernia. 4. Rest of the examination up to third part of duodenum was normal. RECOMMENDATIONS 1. The patient should stay on Protonix 40 mg p.o. daily on a long-term basis. 2. An ERCP will be performed shortly. SEDATION USED MAC. DESCRIPTION OF PROCEDURE Following detailed explanation of potential risks and complications of an upper endoscopy, namely perforation, bleeding, and complication related to sedation, the patient was brought to GI lab and laid in the left lateral decubitus position. Lubricated tip of the Olympus video upper endoscope was passed through the bite block into the proximal esophagus under direct vision. The entire esophageal mucosa was examined. The patient was noted to have distal esophageal tight benign stricture with a classic appearance. The scope was then advanced into the gastric cavity after traversing a small hiatus hernia. Mucosa of the fundus, body, and antrum was examined and the patient was noted to have moderate prepyloric antral erosive gastritis. Pylorus was intubated with visualization of the normal duodenal bulb and second and third part of the duodenum. Upon withdrawal and retroflexion; incisura, cardia, and greater curve was examined and biopsy was obtained from the antrum for CLOtest. The scope was then Unit #: [id number] #: [id number] Patient: NICOLASA BLANCO withdrawn in the distal esophagus. A 15 to 18 mm TTS balloon was passed through the accessory channel of the scope and step-up dilation of the distal esophageal stricture was done with effective dilation being achieved. Minimal bleeding was noted from the area after dilation. The scope was then withdrawn all the way up to pharynx. No additional findings were noted. The patient tolerated the procedure without any postprocedure complications. Dictated by... Nolvia Powell/jonny TD: 05/18/2017 14:41 JOB #: [id number] CC: Ngozi Ramos M.D. OPERATIVE REPORT Page 1 of 1 X Bert Mcfadden MD X PROCEDURE OPERATIVE NOTE
--- NOTE | ~2017-05-16 | HP ---
Unit #: [id number] #: [id number] Patient: NICOLASA BLANCO [id number] [address] [address] [id number] I MR#: [id number] NAME: NICOLASA BLANCO. ROOM: 570 Age: 72 Sex: F Admission Date: 05/16/2017 : 1945 Attending Physician: Ngozi Ramos M.D. Primary Care Physician: No Primary Care Physician HISTORY AND PHYSICAL CHIEF COMPLAINT Abdominal pain. HISTORY OF PRESENT ILLNESS The patient is a 72-year-old female with past medical history of hypertension, hyperlipidemia, hypothyroidism, irritable bowel syndrome, GERD, depression, anxiety, recurrent urinary tract infections who presented to the emergency department for evaluation of the above. The patient states that she was in her usual state of health until the morning of admission when she developed abdominal pain. She describes the pain as "sharp." It is in the upper abdomen. She denies any exacerbating or alleviating factors. No similar pain. She has had nausea but no vomiting. She denies any diarrhea or constipation. No change in her weight. The patient had a CT of the abdomen and pelvis in the emergency department that showed nothing acute. Laboratory notable for AST and ALT of 176 and 77 respectively. Alkaline phosphatase was 150. She was given 4 mg of morphine and 4 mg of Zofran. She is being admitted to [facility] for evaluation and further treatment. PAST MEDICAL HISTORY 1. Admission to [facility], April 01 through April 03, 2017, for urinary tract infection. 2. Recurrent urinary tract infections. The patient sees a urogynecologist and is on Cipro. 3. Hypertension. 4. Hyperlipidemia. 5. Hypothyroidism. 6. Irritable bowel syndrome, the patient sees Dr. Perera. 7. GERD. 8. Depression and anxiety. PAST SURGICAL HISTORY 1. Appendectomy. 2. Cholecystectomy. 3. Hysterectomy. 4. Bladder repair. 5. Colonoscopy about three years ago by Dr. Perera (no records). 6. EGD about a year and a half ago, again per Dr. Perera (no records). SOCIAL HISTORY The patient denies tobacco or alcohol use. Unit #: [id number] #: [id number] Patient: NICOLASA BLANCO FAMILY HISTORY Notable for pancreatic cancer. ALLERGIES No known allergies. HOME MEDICATIONS 1. Abilify. 2. Zocor. 3. Zoloft. 4. Lamictal. 5. Synthroid. 6. Amitriptyline. 7. Norvasc. 8. Pepcid. 9. Valium. 10. Tylenol. 11. Codeine #4. 12. Cipro. Home medications will need to be reviewed and verified. REVIEW OF SYSTEMS A complete review of systems is negative except as indicated in the HPI. DIAGNOSTIC STUDIES LABORATORY: Complete blood count completely normal. INR is 1. Troponin is less than 0.05. Lactic acid is 2.2. Comprehensive metabolic panel notable for glucose of 198. AST and ALT are 176 and 77 respectively, alkaline phosphatase is 150. Lipase is 15. Urinalysis notable for trace leukocyte esterase. IMAGING: CT of the abdomen and pelvis shows nothing acute. Chest x-ray shows nothing acute. CARDIOVASCULAR: I was told EKG showed normal sinus rhythm. There is no EKG on the chart. PHYSICAL EXAMINATION VITAL SIGNS: Temperature is 98.1, pulse 85, respirations 18, blood pressure 172/83, oxygen saturation 100% on room air. GENERAL: The patient is a female who is awake and alert, no acute distress. HEENT: The head is atraumatic. Mucous membranes are moist. NECK: Supple. Trachea is midline. CARDIOVASCULAR: Regular rate and rhythm. LUNGS: Clear to auscultation bilaterally with no increased work of breathing. ABDOMEN: Soft. She is mildly tender to palpation in the epigastric region. Bowel sounds are present in all four quadrants. EXTREMITIES: Nontender with no pedal edema. NEUROLOGIC: The patient is awake and alert. She follows commands. PSYCHIATRIC: Mood and affect are normal. The patient is cooperative. SKIN: Skin of examined areas is warm and dry. ASSESSMENT Unit #: [id number] #: [id number] Patient: NICOLASA BLANCO The patient is a 72-year-old female with: 1. Abdominal pain. 2. Transaminitis: The patient's AST and ALT were 176 and 77 respectively. They had previously been normal. She is on Tylenol with codeine which could be contributing. 3. Hypertension. 4. Hyperlipidemia. 5. Hypothyroidism. 6. Irritable bowel syndrome. 7. GERD. 8. Depression and anxiety. PLAN 1. Admit to intermediate level. 2. Normal saline at 75 mL/hr. 3. Clear liquid diet. 4. P.r.n. morphine. 5. P.r.n. Zofran. 6. Serial cardiac enzymes. 7. Consult Dr. Mcfadden about abdominal pain. 8. SCDs for deep venous thrombosis prophylaxis. 9. Repeat labs in the morning. 10. Additional workup and consultants based on above. Dictated by Ngozi Ramos M.D. VARGAS/rafy TD: 05/16/2017 12:01 JOB #: [id number] HISTORY AND PHYSICAL Page 1 of 1 X Ngozi Ramos MD X HISTORY AND PHYSICAL
[2017-05-16 07:33] LABS: BASOPHIL% 0.4 % (0-2.5); EOSINOPHIL# 0.1 X10e3 (0-0.7); EOSINOPHIL% 1.3 % (0.0-7.0); HEMATOCRIT 43.8 % (35.0-45.0); HEMOGLOBIN 14.2 gm/dL (12.0-16.0); LYMPHOCYTE# 1.6 X10e3 (1.0-3.5); LYMPHOCYTE% 16.4 % (17.0-45.0); MEAN CELL VOLUME 88.9 FL (83-96); MEAN CORPUSCULAR HEMOGLOBIN 28.8 PG (28-34); MEAN CORPUSCULAR HGB CONC 32.4 g/dL (30-36); MEAN PLATELET VOLUME 7.9 FL (6.5-11.5); MONOCYTE# 0.6 X10e3 (0-1.0); MONOCYTE% 6.2 % (3.0-12.0); NEUTROPHIL# 7.2 X10e3 (1.5-7.1); NEUTROPHIL% 75.7 % (40-75); PLATELET COUNT 232 X10e3 (140-420); RED BLOOD COUNT 4.93 X10e (3.90-5.30); WHITE BLOOD COUNT 9.5 X10e3 (4.0-10.5)
[2017-05-16 07:35] LABS: DIFF IND NO
[2017-05-16 07:53] LABS: PARTIAL THROMBOPLASTIN TIME 24.7 SECONDS (23.5-31.3); PROTHROMBIN TIME (PATIENT) 10.9 SECONDS (10.0-11.7)
[2017-05-16 08:09] LABS: ALBUMIN SERUM 4.5 g/dL (3.5-5.0); BILIRUBIN, DIRECT 0.3 mg/dL (0.0-0.2); BILIRUBIN,INDIRECT 0.4 mg/dL (0.0-0.9); BILIRUBIN,TOTAL 0.7 mg/dL (0.2-2.0); BUN/CREATININE RATIO 12.22; CALCIUM SERUM 9.3 mg/dL (8.4-10.2); CREATININE SERUM 0.9 mg/dL (0.6-1.4); POTASSIUM 3.8 mmol/L (3.5-5.1); PROTEIN TOTAL SERUM 7.6 g/dL (6.0-8.3)
[2017-05-16 08:12] LABS: POC - CKMB 1.8 ng/mL (0.0-7.9); POC - TROPONIN <0.05 ng/mL (<=0.05)
[2017-05-16 08:43] LABS: URINE SOURCE CLEAN CATCH
[2017-05-16 08:54] LABS: URINE APPEARANCE CLEAR; URINE BILIRUBIN NEG (NEG); URINE BLOOD NEG (NEG); URINE COLOR YELLOW; URINE GLUCOSE NEG (NEG); URINE KETONE NEG (NEG); URINE LEUKOCYTE ESTERASE TRACE (NEG); URINE NITRATE NEG (NEG); URINE PROTEIN NEG (NEG); URINE UROBILINOGEN 0.2 MG/DL (NEG)
[2017-05-16 08:57] LABS: URBCS1 AUWI 0-2 /[HPF] (0-2); URINE BACTERIA AUWI NEG (NEGATIVE); URINE SQUAMOUS EPITHELIAL CELL NONE SEEN /[HPF]
[2017-05-16 08:58] LABS: CULTURE INDICATED? NO
[2017-05-16 15:49] LABS: CK TOTAL 35 IU/L (26-140)
[2017-05-16 22:01] LABS: CK TOTAL 45 IU/L (26-140)
[2017-05-17 06:03] LABS: HEMATOCRIT 38.6 % (35.0-45.0); HEMOGLOBIN 12.4 gm/dL (12.0-16.0); MEAN CELL VOLUME 89.4 FL (83-96); MEAN CORPUSCULAR HEMOGLOBIN 28.7 PG (28-34); MEAN CORPUSCULAR HGB CONC 32.1 g/dL (30-36); RED BLOOD COUNT 4.31 X10e (3.90-5.30); RED CELL DISTRIBUTION WIDTH 14.3 % (11.0-15.5)
[2017-05-17 06:09] LABS: WHITE BLOOD COUNT 4.2 X10e3 (4.0-10.5)
[2017-05-17 07:03] LABS: CALCIUM SERUM 8.9 mg/dL (8.4-10.2); CREATININE SERUM 0.6 mg/dL (0.6-1.4); GLOM FILT RATE Estimated 89.8 mL/min (>60); POTASSIUM 4.1 mmol/L (3.5-5.1)
[2017-05-17 08:31] LABS: ALBUMIN SERUM 3.9 g/dL (3.5-5.0); BILIRUBIN, DIRECT 0.2 mg/dL (0.0-0.2); BILIRUBIN,INDIRECT 0.7 mg/dL (0.0-0.9); BILIRUBIN,TOTAL 0.9 mg/dL (0.2-2.0); PROTEIN TOTAL SERUM 6.5 g/dL (6.0-8.3)
[2017-05-18 05:54] LABS: HEMATOCRIT 40.9 % (35.0-45.0); HEMOGLOBIN 13.3 gm/dL (12.0-16.0); MEAN CELL VOLUME 88.3 FL (83-96); MEAN CORPUSCULAR HEMOGLOBIN 28.8 PG (28-34); MEAN CORPUSCULAR HGB CONC 32.6 g/dL (30-36); RED BLOOD COUNT 4.63 X10e (3.90-5.30); RED CELL DISTRIBUTION WIDTH 14.1 % (11.0-15.5)
[2017-05-18 06:01] LABS: WHITE BLOOD COUNT 8.1 X10e3 (4.0-10.5)
[2017-05-18 07:40] LABS: ALBUMIN SERUM 4.1 g/dL (3.5-5.0); BILIRUBIN,TOTAL 0.9 mg/dL (0.2-2.0); CALCIUM SERUM 8.9 mg/dL (8.4-10.2); CREATININE SERUM 0.5 mg/dL (0.6-1.4); GLOM FILT RATE Estimated 95.4 mL/min (>60); POTASSIUM 3.7 mmol/L (3.5-5.1); PROTEIN TOTAL SERUM 6.9 g/dL (6.0-8.3)
[2017-05-18] MEDS ORDERED: PROTONIX PO (13:45)
[2017-07-13] MEDS ORDERED: PANTOPRAZOLE SO40 MG PO (10:04)
[2017-07-13] MEDS ORDERED: LAMICTAL100 MG PO (10:06)
[2017-07-13] MEDS ORDERED: ZOLOFT PO (10:06)
[2017-07-13] MEDS ORDERED: ABILIFY5 MG PO (10:07)
[2017-07-13] MEDS ORDERED: AMITRIPTYLINE H75 MG PO (10:07)
[2017-07-13] MEDS ORDERED: SIMVASTATIN40 MG PO (10:08)
[2017-07-13] MEDS ORDERED: LEVOTHYROXINE100 MCG PO (10:08)
[2017-07-13] MEDS ORDERED: AMLODIPINE BESYL5 MG PO (10:11)
== END 2017-05-18 15:02 | disposition home or self-care (01) ==
LOC: CED 06:39 → CPACUOF 09:31 → C2A 09:31 → CPACUOF 09:37 → CED 09:37 → C5C 11:06 → CPACUOF 11:06 → C5C 05-17 07:05 → C2A 05-17 17:22
PROVIDERS: Emergency Medicine; Family Medicine; Internal Medicine; Internal Medicine Gastroenterology
DX: K80.51 Calculus of bile duct without cholangitis or cholecystitis with obstruction (principal); K44.9 Diaphragmatic hernia without obstruction or gangrene; K22.2 Esophageal obstruction; K29.60 Other gastritis without bleeding; K75.9 Inflammatory liver disease, unspecified; Z80.0 Family history of malignant neoplasm of digestive organs; R74.0 Nonspecific elevation of levels of transaminase and lactic acid dehydrogenase [LDH]; I10 Essential (primary) hypertension; E78.5 Hyperlipidemia, unspecified; E03.9 Hypothyroidism, unspecified; K58.9 Irritable bowel syndrome, unspecified; K21.9 Gastro-esophageal reflux disease without esophagitis; F41.9 Anxiety disorder, unspecified; Z90.49 Acquired absence of other specified parts of digestive tract
CPT/HCPCS: 36415; 51701; 71010; 74177; 74330; 80048; 80053; 80076; 81003; 82150; 82550; 82553; 83036; 83605; 83690; 84484; 85025; 85027; 85610; 85730; 87077; 93005; 96361; 96374; 96375; 96376; 99285; G0378; J1610; J2250; J2270; J2405; J2550; J3010; Q9967

== ENCOUNTER 2017-05-20 16:09 | Emergency (ER) | payer MEDICARE, BC ==
[2017-05-20 17:36] LABS: BASOPHIL# 0.1 X10e3 (0-0.3); BASOPHIL% 0.7 % (0-2.5); DIFF IND NO; EOSINOPHIL# 0.1 X10e3 (0-0.7); EOSINOPHIL% 1.6 % (0.0-7.0); HEMATOCRIT 39.2 % (35.0-45.0); HEMOGLOBIN 12.7 gm/dL (12.0-16.0); LYMPHOCYTE# 1.8 X10e3 (1.0-3.5); LYMPHOCYTE% 23.7 % (17.0-45.0); MEAN CORPUSCULAR HEMOGLOBIN 28.5 PG (28-34); MEAN CORPUSCULAR HGB CONC 32.4 g/dL (30-36); MONOCYTE# 0.6 X10e3 (0-1.0); MONOCYTE% 7.9 % (3.0-12.0); NEUTROPHIL% 66.1 % (40-75); PLATELET COUNT 243 X10e3 (140-420); RED BLOOD COUNT 4.46 X10e (3.90-5.30); RED CELL DISTRIBUTION WIDTH 14.2 % (11.0-15.5); WHITE BLOOD COUNT 7.6 X10e3 (4.0-10.5)
[2017-05-20 18:25] LABS: ALBUMIN SERUM 4.3 g/dL (3.5-5.0); BILIRUBIN, DIRECT 0.1 mg/dL (0.0-0.2); BILIRUBIN,INDIRECT 0.3 mg/dL (0.0-0.9); BILIRUBIN,TOTAL 0.4 mg/dL (0.2-2.0); CREATININE SERUM 0.5 mg/dL (0.6-1.4); GLOM FILT RATE Estimated 95.4 mL/min (>60); POTASSIUM 3.9 mmol/L (3.5-5.1); PROTEIN TOTAL SERUM 7.7 g/dL (6.0-8.3)
[2017-05-20 18:38] LABS: URINE SOURCE CLEAN CATCH
[2017-05-20 18:45] LABS: URINE APPEARANCE CLEAR; URINE BILIRUBIN NEG (NEG); URINE BLOOD NEG (NEG); URINE COLOR YELLOW; URINE GLUCOSE NEG (NEG); URINE KETONE NEG (NEG); URINE LEUKOCYTE ESTERASE 2+ (NEG); URINE NITRATE NEG (NEG); URINE PROTEIN NEG (NEG); URINE SPECIFIC GRAVITY 1.013 (1.003-1.035); URINE UROBILINOGEN 0.2 MG/DL (NEG)
[2017-05-20 18:48] LABS: CULTURE INDICATED? YES; URINE BACTERIA AUWI NEG (NEGATIVE); URINE SQUAMOUS EPITHELIAL CELL NONE SEEN /[HPF]
[2017-07-13] MEDS ORDERED: PANTOPRAZOLE SO40 MG PO (10:04)
[2017-07-13] MEDS ORDERED: LAMICTAL100 MG PO (10:06)
[2017-07-13] MEDS ORDERED: ZOLOFT PO (10:06)
[2017-07-13] MEDS ORDERED: AMITRIPTYLINE H75 MG PO (10:07)
[2017-07-13] MEDS ORDERED: ABILIFY5 MG PO (10:07)
[2017-07-13] MEDS ORDERED: LEVOTHYROXINE100 MCG PO (10:08)
[2017-07-13] MEDS ORDERED: SIMVASTATIN40 MG PO (10:08)
[2017-07-13] MEDS ORDERED: AMLODIPINE BESYL5 MG PO (10:11)
== END 2017-05-20 20:44 | disposition home or self-care (01) ==
LOC: CED 16:09
DX: N30.00 Acute cystitis without hematuria (principal); E78.5 Hyperlipidemia, unspecified; I10 Essential (primary) hypertension; K58.9 Irritable bowel syndrome, unspecified; Z90.49 Acquired absence of other specified parts of digestive tract; Z90.710 Acquired absence of both cervix and uterus
CPT/HCPCS: 36415; 80048; 80076; 81003; 83690; 85025; 87086; 87088; 87186; 96374; 96375; 99284; J2270; J2405

== ENCOUNTER → 2017-07-21 | Day surgery (SDC) | payer MEDICARE, BC ==
[~2017-07-21] MED LIST changes: +AMLODIPINE BESYL5 MG PO; +LAMICTAL100 MG PO; +LEVOTHYROXINE100 MCG PO; +OMNICEF300 M1 PO; +PANTOPRAZOLE SO40 MG PO; +SIMVASTATIN40 MG PO
--- NOTE | ~2017-07-21 | CR84 ---
[facility] A Service of [facility] RADIOLOGY TEXT RESULTS PATIENT: NICOLASA BLANCO LOCATION: [facility] : 43 UNIT #: [id number] AGE: [address]: Bert Mcfadden MD SEX: F ORDER DR: [id number] [id number] [facility]. [place], [place] [address] [id number] O MR#: [id number] Acc #: [id number] NAME: NICOLASA BLANCO. : 1945 SEX: F STUDY DATE/TIME: 07/21/2017 13:03 UNIT: [facility] ROOM: STUDY DESCRIPTION: CR ERCP Biliary and Pancr SI Attending Physician: Bert Mcfadden M.D. Ordering Physician: Bert Mcfadden M.D. Primary Care Physician: Primary Care Physician No MEDICAL IMAGING REPORT This report is preliminary unless electronic signature is present EXAM ERCP with fluoroscopy 07/21/2017 HISTORY 72-year-old female for stent removal. History of kidney stones. FINDINGS 9 spot fluoroscopic images were obtained during ERCP procedure performed by Dr. Mcfadden. Fluoroscopy time 0.58 minutes was documented. Contrast is injected into the CBD which appears diffusely dilated. There is mild dilation into the intrahepatic biliary tree. No high-grade stricture is identified. No suspicious filling defects are seen to suggest retained stones. No contrast extravasation is identified. Balloon sweep was performed, with documented extraction of debris but not stones. Pancreatic duct was not sought. Please refer to endoscopist report for additional findings and recommendations. Dictated by... Toshia Cabezas M.D. THIS IS AN ELECTRONICALLY VERIFIED REPORT Toshia Cabezas M.D. at 07/22/2017 1:11 PM ROBERTO CARLOS/viraj TD: 07/22/2017 12:38 JOB #: [id number] MEDICAL IMAGING REPORT [facility] A Service of [facility] RADIOLOGY TEXT RESULTS PATIENT: NICOLASA BLANCO LOCATION: [facility] : 43 UNIT #: [id number] AGE: [address]: Bert Mcfadden MD SEX: F ORDER DR: Page 1 of 1 COPY
--- NOTE | ~2017-07-21 | OR ---
Unit #: [id number] #: [id number] Patient: NICOLASA BLANCO [id number] [address] [address] [id number] O MR#: [id number] NAME: NICOLASA BLANCO ROOM: Date of Procedure: 07/21/2017 Admission Date: 07/21/2017 Surgeon: Bert Mcfadden M.D. : 1945 Attending Physician: Bert Mcfadden M.D. Primary Care Physician: Reinaldo Lucia M.D. OPERATIVE REPORT PRIMARY CARE PHYSICIAN Dr. Reinaldo Lucia. PREOPERATIVE DIAGNOSES The patient has presented for elective biliary stent removal with an ERCP. She is status post common bile duct stone extraction. PROCEDURES PERFORMED 1. Endoscopic retrograde cholangiopancreatography and removal of the biliary stent. 2. Endoscopic retrograde cholangiopancreatography and removal of the common bile duct debris. POSTOPERATIVE DIAGNOSES The patient has presented for elective biliary stent removal with an ERCP. She is status post common bile duct stone extraction. RECOMMENDATIONS The patient will follow up in 3 months' time in the office. In the meantime, she will call us in case of any post-ERCP pain or complication. SEDATION USED MAC. DESCRIPTION OF PROCEDURE Following detailed explanation of potential risks and complications of an ERCP, namely perforation, bleeding, and complication related to sedation, the patient was brought to GI lab and laid in the left semiprone position. Sedation using MAC was given. The lateral viewing duodenoscope was advanced through the oral cavity into the esophagus and advanced into the stomach. Pylorus was intubated in usual fashion. Scope was advanced in deep descending duodenum. Upon shortening, the major papilla and ampulla area was visualized en face. Previously placed biliary stent was in place in normal position. The stent was removed using polypectomy snare and delivered outside. The patient was then reintubated. Through the previous sphincterotomy site, a guidewire was introduced in the common bile duct. The contrast cholangiogram was obtained. This showed some filling defects. The sphincterotomy was extended slightly, and the common bile duct was swept with a 9 to 12 mm retrieval balloon multiple times. A small amount of common bile duct debris was delivered in the duodenum; however, no stones were seen. A normal occlusion cholangiogram was obtained, and excellent biliary drainage was seen. The scope and the Unit #: [id number] #: [id number] Patient: NICOLASA BLANCO accessories were then withdrawn. The patient returned to the recovery area. She tolerated the procedure without any postprocedure complications. Dictated by... Nolvia Powell TD: 07/22/2017 06:28 JOB #: [id number] OPERATIVE REPORT Page 1 of 1 X Bert Mcfadden MD PROCEDURE OPERATIVE NOTE
== END | disposition home or self-care (01) ==
LOC: COPS 12:04
DX: Z46.59 Encounter for fitting and adjustment of other gastrointestinal appliance and device (principal); K21.9 Gastro-esophageal reflux disease without esophagitis; Z87.440 Personal history of urinary (tract) infections; Z79.899 Other long term (current) drug therapy; Z90.49 Acquired absence of other specified parts of digestive tract; Z90.710 Acquired absence of both cervix and uterus
CPT/HCPCS: 74330; J3010

== ENCOUNTER 2017-07-22 04:32 | Inpatient (IN) | payer MEDICARE, BC ==
[~2017-07-22] VITALS: Ht 165.1 cm; Wt 74.4 kg
--- NOTE | ~2017-07-22 | CT71 ---
[facility] A Service of [facility] & [facility] RADIOLOGY TEXT RESULTS PATIENT: NICOLASA BLANCO LOCATION: [facility] 313-01 : 43 UNIT #: [id number] AGE: [address]: eLo Lazaro MD SEX: F ORDER DR: [id number] [facility] [address] [place], [place] [address] [id number] I MR#: [id number] Acc #: [id number] NAME: NICOLASA BLANCO : 1945 SEX: F STUDY DATE/TIME: 07/22/2017 05:31 UNIT: [address] ROOM: [facility] STUDY DESCRIPTION: CT Head Wo Contrast Attending Physician: Leo Lazaro M.D. Ordering Physician: Celestine Lee M.D. Primary Care Physician: Reinaldo Lucia M.D. MEDICAL IMAGING REPORT This report is preliminary unless electronic signature is present EXAM Head CT 07/22 at 05:31 INDICATIONS Dizziness this morning with increasing confusion. Last seen normal at 07:00 p.m. last night. FINDINGS Axial images were obtained from the base of the vertex without contrast. Comparison made with 04/01/2017. This CT exam was performed with one or more of the following radiation dose reduction techniques: automatic control, adjustment of mA and/or kV according to patient size, and iterative reconstruction. Again seen is atrophy. Ventricular size and configuration are stable. There is no acute infarct or hemorrhage. There are no masses. No skull fracture. Chronic mucosal thickening is present in the sphenoid sinuses. IMPRESSION No acute findings in the brain. No significant interval change. Dictated by... Orlando Lafleur Jr., M.D. THIS IS AN ELECTRONICALLY VERIFIED REPORT Orlando Lafleur Jr., M.D. at 07/23/2017 4:16 AM DARCI/dhruv TD: 07/23/2017 00:37 JOB #: [id number] MEDICAL IMAGING REPORT Page 1 of 1 COPY
--- NOTE | ~2017-07-22 | CT2 ---
[facility] A Service of [facility] & [facility] RADIOLOGY TEXT RESULTS PATIENT: NICOLASA BLANCO LOCATION: A 222-01 : 43 UNIT #: [id number] AGE: [address]: Dulce Maria Brown MD SEX: F ORDER DR: [id number] [facility] [address] [place], [place] [address] [id number] I MR#: [id number] Acc #: [id number] NAME: NICOLASA BLANCO. : 1945 SEX: F STUDY DATE/TIME: 07/22/2017 19:36 UNIT: C3A PCU ROOM: 313 STUDY DESCRIPTION: CT Abd and Pelv W Cont Attending Physician: Leo Lazaro M.D. Ordering Physician: Leo Lazaro M.D. Primary Care Physician: Reinaldo Lucia M.D. MEDICAL IMAGING REPORT This report is preliminary unless electronic signature is present EXAM CT abdomen and pelvis with contrast 07/22/2017 HISTORY Epigastric pain with nausea beginning today. Previous appendectomy, cholecystectomy, hysterectomy, bladder repair and ERCP with stent placement. COMPARISON CT abdomen and pelvis with contrast 05/16/2017. PROCEDURE 5 mm axial images from the lung bases through the lesser trochanters after intravenous and enteric contrast administration. Sagittal and coronal reformatted images were obtained. This CT examination was performed with one or more of the following radiation dose reduction techniques: automatic exposure control, adjustment of mA and/or kV according to patient size, and iterative reconstruction. FINDINGS Mildly prominent common bile duct measures up to 8 mm. No obstructing abnormality is seen. No appreciable intrahepatic biliary ductal dilation is seen. Cholecystectomy changes are noted. The liver, adrenals and kidneys are within normal limits. Tiny 6 mm splenic cyst. Not mentioned above, a cyst in the left upper renal pole is unchanged. Emphysematous changes in the lung bases with band-like scarring in the bilateral lower lobes. Moderate esophageal hiatal hernia. No free air, free fluid, pneumatosis or pathologic adenopathy is seen. There is a moderate colonic stool burden. No evidence of bowel obstruction. PELVIS: Hysterectomy. Urinary bladder and rectum are within normal limits. STS. [facility] A Service of [facility] & [facility] RADIOLOGY TEXT RESULTS PATIENT: NICOLASA BLANCO LOCATION: [place] [address]-01 : 43 UNIT #: [id number] AGE: [address]: Dulce Maria Brown MD SEX: F ORDER DR: Lumbar dextroscoliosis. Multilevel lumbar facet arthropathy. No acute osseous abnormalities. IMPRESSION 1. No acute findings within the abdomen or pelvis. 2. Mild CBD prominence up to 8 mm, similar to the 05/16/2017 examination. No obstructing abnormality is seen. No abnormal intrahepatic biliary ductal dilation. 3. Cholecystectomy. 4. Emphysematous change with chronic bibasilar scarring. Not mentioned above, there is probable mild atelectasis in the posterior left lower lobe. 5. Moderate generalized colonic stool burden. Correlate for constipation. No evidence of bowel obstruction. 6. Hysterectomy. 7. Moderate esophageal hiatal hernia. Dictated by... Toshia Cabezas M.D. THIS IS AN ELECTRONICALLY VERIFIED REPORT Toshia Cabezas M.D. at 07/25/2017 9:52 AM ROBERTO CARLOS/harish TD: 07/24/2017 07:48 JOB #: [id number] MEDICAL IMAGING REPORT Page 1 of 1 COPY
--- NOTE | ~2017-07-22 | EKG ---
PATIENT: NICOLASA BLANCO UNIT #: [id number] Ventricular Rate: 113 BPM Atrial Rate: 113 BPM P-R Interval: 128 ms QRS Duration: 88 ms Q-T Interval: 394 ms QTC Calculation(Bezet): 540 ms P Richmond: 42 degrees Calculated R Richmond: 56 degrees Calculated T Richmond: 70 degrees Diagnosis Line: Sinus tachycardia with frequent Premature Diagnosis Line: ventricular complexes Diagnosis Line: Left atrial enlargement Diagnosis Line: Nonspecific ST abnormality Diagnosis Line: Prolonged QT Diagnosis Line: Abnormal ECG Diagnosis Line: When compared with ECG of 16-MAY-2017 07:38, Diagnosis Line: Premature ventricular complexes are now Present Diagnosis Line: Confirmed by BETH DO MD ([id number]) on 07/23/2017 Diagnosis Line: 11:04:07 PM INTERPRETING MD: ERNESTINA MAYORGA
--- NOTE | ~2017-07-22 | DS ---
Unit #: [id number] #: [id number] Patient: NICOLASA BLANCO [id number] [address] [address] [id number] I MR#: [id number] NAME: NICOLASA BLANCO. ROOM: 222 Age: 72 Sex: F Admission Date: 07/22/2017 : 1945 Discharge Date: 07/25/2017 Attending Physician: Dulce Maria Brown M.D. Primary Care Physician: Reinaldo Lucia M.D. DISCHARGE SUMMARY PRIMARY CARE PROVIDER Dr. Lucia. PRINCIPAL DIAGNOSES 1. Sepsis secondary to acute cholangitis. 2. Escherichia coli and Klebsiella pneumoniae urinary tract infection. 3. Klebsiella bacteremia. 4. Hypokalemia. 5. Transaminitis secondary to cholangitis with recent stent removal, resolved. 6. Toxic metabolic encephalopathy, resolved. 7. Hypertension. 8. Anxiety with depression. 9. Hyperlipidemia. 10. Hypothyroidism. 11. Irritable bowel syndrome. 12. Gastroesophageal reflux disease. 13. Mild protein malnutrition. WEB SERVICES MANAGER Dr. Mcfadden of Gastroenterology. PROCEDURES 1. Chest x-ray on 07/22/2017, no infiltrate or atelectasis in the left base. 2. CT of the head without contrast on 07/22/2017 with no acute findings. Atrophy is noted. Chronic mucosal thickening in the sphenoid sinus is noted. 3. CT scan of abdomen and pelvis with contrast on 07/22/2017 with no acute findings, mild common bile duct prominence of 8 mm, emphysematous change with chronic bibasilar scarring noted and atelectasis in the left lower lobe, moderate generalized colonic stool burden, hysterectomy noted. CLINICAL HISTORY AND HOSPITAL COURSE Ms. Lange is a nice 72-year-old female, who presents to the emergency department with abdominal pain after removal of biliary stent the day prior per Dr. Mcfadden. In the emergency department, the patient was mildly confused. CBC was normal, and AST and ALT were elevated at 945 and 786 respectively. Alkaline phosphatase was also elevated at 260. There were concerns about possible cholangitis. The CT scan was negative. She was subsequently admitted and placed on IV antibiotics. The patient was subsequently admitted. She was seen in consultation by Unit #: [id number] #: [id number] Patient: NICOLASA BLANCO Dr. Mcfadden and continued on IV antibiotics. She was febrile initially during hospitalization that resolved. White blood cell count increased slightly and then returned to normal. She did have blood cultures, two of two revealing Klebsiella pneumoniae in addition to a UTI with Klebsiella pneumoniae and E. coli. I cannot rule out that in fact perhaps her UTI with associated bacteremia was the source of all her symptoms and there was less evidence of cholangitis. However, either way, we are going to treat appropriately with antibiotics. I will note repeat blood cultures were negative. The patient has associated toxic metabolic encephalopathy, but this is resolved. The patient also had several electrolyte abnormalities, but these have been corrected. Today, the patient is eating a regular diet, has minimal pain and will be discharged home. DISCHARGE CONDITION Stable. DISCHARGE STATUS Discharged to home. DISCHARGE MEDICATIONS Omnicef 300 mg p.o. b.i.d. for another 12 days, Lamictal 100 mg at bedtime, amitriptyline 75 mg two tablets p.o. at bedtime, Zoloft 100 mg daily, Abilify 5 mg at bedtime, Norvasc 5 mg daily, simvastatin 40 mg at bedtime, pantoprazole 40 mg daily, levothyroxine 100 mcg p.o. daily. DISCHARGE INSTRUCTIONS The patient was instructed to follow a heart healthy diet. She can increase her activity as tolerated. FOLLOWUP The patient will follow up with Dr. Mcfadden in approximately 4 weeks. She is to follow up with her primary care provider, Dr. Lucia in 2 weeks. Dictated by... Dulce Maria Brown M.D. MANUEL/jonny TD: 07/28/2017 02:59 JOB #: [id number] DISCHARGE SUMMARY Page 1 of 1 X Dulce Maria Brown MD DISCHARGE SUMMARY
--- NOTE | ~2017-07-22 | CO ---
Unit #: [id number] #: [id number] Patient: NICOLASA BLANCO [id number] [address] [address] [id number] I MR#: [id number] NAME: NICOLASA BLANCO. ROOM: 313 Age: 72 Sex: F Admission Date: 07/22/2017 : 1945 Attending Physician: Leo Lim M.D. Primary Care Physician: Reinaldo Lucia M.D. Consultation Date: 07/23/2017 CONSULTATION REPORT JOB NOTE: CC: DR. REINALDO LUCIA, DR. LEO LIM. ATTENDING PHYSICIAN Dr. Leo Lim. PRIMARY CARE PHYSICIAN Dr. Reinaldo Lucia. REASON FOR CONSULTATION Upper abdominal pain following an ERCP. HISTORY OF PRESENT ILLNESS Ms. Ramsey had a common bile duct stone extraction and subsequently biliary stent placement. She came in on Monday for biliary stent removal. The patient was found to have some suggestion of filling defects and sphincterotomy was slightly extended. As a result, the common duct was then swept with a retrieval balloon and some debris was delivered in the duodenum. A normal cholangiogram was demonstrated postprocedure. No attempt was made at cannulation of the pancreatic duct. She presents with upper abdominal pain with nausea and vomiting. The patient is still in some pain after admission on IV analgesia, but say she would like to drink or eat something. PAST MEDICAL HISTORY Significant for choledocholithiasis, status post common bile duct stent removal in the past. She also has history of hypertension, hyperlipidemia, hypothyroidism, gastroesophageal reflux, depression and anxiety, as well as urinary tract infections. PAST SURGICAL HISTORY Included a hysterectomy, appendectomy, cholecystectomy, and bladder suspension surgery. SOCIAL HISTORY Lives at home with her . Does not smoke or drink alcohol. MEDICATIONS At home were reviewed from the records and these include pantoprazole 40 mg p.o. daily, Lamictal, Zoloft, Abilify, amitriptyline, levothyroxine, simvastatin, amlodipine. ALLERGIES She has no known drug allergies. Unit #: [id number] #: [id number] Patient: NICOLASA BLANCO FAMILY HISTORY There is history of pancreatic cancer in the family. No family history of colon cancer or liver disease. REVIEW OF SYSTEMS Detailed review of organ systems does not reveal any recent weight loss. No history of fever, chills, or rigors. No history of headache, seizures, chest pain, or syncope. No history of cough, expectoration, or hemoptysis. No history of dysuria, hematuria, or pyuria. No history focal seizures or extremity weakness. Rest of the review of organ system is unremarkable. PHYSICAL EXAMINATION GENERAL: She is awake, alert, and oriented, and still seems to be in some pain. VITAL SIGNS: Stable with a temperature of 97.8, pulse is 79 per minute and regular, respiratory rate is 18, blood pressure is 145/67. She weighs 162 pounds, close to her baseline weight. HEENT: She has no pallor, icterus, lymphadenopathy, or peripheral edema. CARDIOVASCULAR: Normal heart sounds. No murmurs on auscultation. LUNGS: Reveals normal breath sounds. Good air entry. ABDOMEN: Soft and nontender. Liver and spleen are not palpable. Bowel sounds normal. DIAGNOSTIC STUDIES LABORATORY RESULTS: Shows an INR 1.2. CBC shows a leukocytosis with a white count of 11,000 with left shift, hemoglobin is 11.4, and platelet count is 169. BUN and creatinine are normal. Potassium is 3.3 and the main abnormality being elevation of transaminases. AST and ALT 218 and 303 despite with the declining trend. Alkaline phosphatase is 138. Amylase and lipase are normal. IMAGING STUDIES: CT scan of the abdomen done shortly after admission is unremarkable and does not show any evidence of pancreatitis nor any evidence of perforation. CLINICAL IMPRESSION The patient most likely has cholangitis following the procedure with mild leukocytosis and elevated LFTs. We will treat with supportive treatment including IV fluids, analgesia, and IV antibiotics. Thank you for asking me to see this pleasant woman. I appreciate the consult. Dictated by... Nolvia Powell/jonny TD: 07/23/2017 11:10 JOB #: [id number] Unit #: [id number] #: [id number] Patient: NICOLASA BLANCO CONSULTATION REPORT Page 1 of 1 X Bert Mcfadden MD CONSULTATION REPORT
--- NOTE | ~2017-07-22 | CR72 ---
[facility] A Service of [facility] & [facility] RADIOLOGY TEXT RESULTS PATIENT: NICOLASA BLANCO LOCATION: [facility] 313-01 : 43 UNIT #: [id number] AGE: [address]: Leo Lazaro MD SEX: F ORDER DR: [id number] [facility] [address] [place], [place] [address] [id number] I MR#: [id number] Acc #: [id number] NAME: NICOLASA BLANCO : 1945 SEX: F STUDY DATE/TIME: 07/22/2017 00:44 UNIT: [address] ROOM: [facility] STUDY DESCRIPTION: CR Chest Single View Portable Attending Physician: Leo Lazaro M.D. Ordering Physician: Celestine Lee M.D. Primary Care Physician: Reinaldo Lucia M.D. MEDICAL IMAGING REPORT This report is preliminary unless electronic signature is present EXAM Portable chest, 07/22 at 04:44. INDICATIONS Shortness of air, cough and congestion today. FINDINGS AP portable chest compared with 05/16/2017. Mild cardiomegaly is stable. Granulomatous calcifications are present particularly on the left side of the chest. There is some infiltrate or atelectasis at the left base. Right lung is otherwise clear. No pneumothorax. IMPRESSION New infiltrate or atelectasis at the left base, otherwise, stable from prior. Dictated by... Orlando Lafleur Jr., M.D. THIS IS AN ELECTRONICALLY VERIFIED REPORT Orlando Lafleur Jr., M.D. at 07/23/2017 4:16 AM DARCI/jamison TD: 07/23/2017 00:22 JOB #: [id number] MEDICAL IMAGING REPORT Page 1 of 1 COPY
--- NOTE | ~2017-07-22 | HP ---
Unit #: [id number] #: [id number] Patient: NICOLASA BLANCO [id number] [address] [address] [id number] I MR#: [id number] NAME: NICOLASA BLANCO. ROOM: 313 Age: 72 Sex: F Admission Date: 07/22/2017 : 1945 Attending Physician: Leo Lazaro M.D. Primary Care Physician: Reinaldo Lucia M.D. HISTORY AND PHYSICAL CHIEF COMPLAINT Abdominal pain. HISTORY OF PRESENT ILLNESS The patient is a 72-year-old female, who presented to [facility] emergency department on 07/22/17, secondary to abdominal pain, started this morning, is associated with fever and mental status changes/encephalopathy, better with pain medications. Pain is severe associated with nausea as well. Of note, the patient did undergo ERCP and removal of a biliary stent yesterday. PAST MEDICAL HISTORY 1. Recurrent urinary tract infections. 2. Hypertension. 3. Hyperlipidemia. 4. Hypothyroidism. 5. Irritable bowel syndrome. 6. Gastroesophageal reflux disease. 7. Depression. PAST SURGICAL HISTORY 1. Appendectomy. 2. Cholecystectomy. 3. Hysterectomy. 4. Bladder repair. 5. Colonoscopy. 6. Esophagogastroduodenoscopy. 7. Aforementioned ERCP. SOCIAL HISTORY There is no alcohol, tobacco, or illicit drug use. The patient lives with family. FAMILY HISTORY Pancreatic cancer. ALLERGIES No known drug allergies. HOME MEDICATIONS 1. Norvasc 5 mg daily 2. Synthroid 100 mcg daily 3. Simvastatin 40 mg daily 4. Abilify 5 mg daily Unit #: [id number] #: [id number] Patient: NICOLASA BLANCO 5. Amitriptyline 150 mg p.o. q.h.s. 6. Lamictal 100 mg p.o. q.h.s. 7. Zoloft 200 mg daily 8. Protonix 40 mg daily REVIEW OF SYSTEMS Ten point review of systems obtained and negative except as per history of present illness. PHYSICAL EXAMINATION VITAL SIGNS: Temperature 104.5, pulse 101, and blood pressure 130/83. GENERAL: 72-year-old female, in no acute distress who appears her staged age. HEENT: Pupils equally round and reactive to light. Extraocular movements are intact. Mucous membranes dry. NECK: Supple with no jugular venous distention. No lymphadenopathy. CARDIAC: Regular rate and rhythm. No murmurs, gallops, or rubs. LUNGS: Clear to auscultation bilaterally. ABDOMEN: Tender to palpation in bilateral upper quadrants, soft, no guarding. EXTREMITIES: No clubbing, cyanosis, or edema. They are warm and dry. PSYCH: Alert and oriented x3. Affect is appropriate. NEUROLOGICAL: Cranial nerves II through XII intact grossly. The patient moves all extremities equally and with purpose. SKIN: No rashes, bruises, or ulcers. MUSCULOSKELETAL: No muscle or joint pain and no muscle or joint swelling. DIAGNOSTIC STUDIES LABORATORY: Total bili 3.1, AST 945, ALT 786, alkaline phosphatase 260. Initial lactic acid is 2. Coagulation studies are normal. CBC is normal. IMAGING: Chest x-ray is read as questionable pneumonia. ASSESSMENT/PLAN 1. Cholangitis, given the patient's recent ERCP, her abdominal pain, and elevated liver function tests, I am concerned for cholangitis. I started the patient on IV Zosyn. 2. Severe sepsis. The patient has been started on IV Zosyn and fluids. 3. Pain. The patient has been started on IV morphine. 4. Toxic metabolic encephalopathy. The patient was confused upon presentation this was likely secondary to her fever and infection. This is resolved at the time of my interview. 5. Prophylaxis. The patient has been started on SCDs. Dictated by Nlovia Barrientos/annamarie TD: 07/23/2017 11:43 JOB #: [id number] Unit #: [id number] #: [id number] Patient: NICOLASA BLANCO HISTORY AND PHYSICAL Page 1 of 1 X Leo Lazaro MD HISTORY AND PHYSICAL
[~2017-07-22 04:32] MED LIST changes: -OMNICEF300 M1 PO
[2017-07-22 05:05] LABS: POC - CKMB 1.5 ng/mL (0.0-7.9); POC - TROPONIN <0.05 ng/mL (<=0.05)
[2017-07-22 05:08] LABS: BASOPHIL% 0.2 % (0-2.5); EOSINOPHIL% 0.1 % (0.0-7.0); HEMATOCRIT 42.6 % (35.0-45.0); HEMOGLOBIN 14.2 gm/dL (12.0-16.0); LYMPHOCYTE# 0.5 X10e3 (1.0-3.5); LYMPHOCYTE% 7.5 % (17.0-45.0); MEAN CELL VOLUME 86.5 FL (83-96); MEAN CORPUSCULAR HEMOGLOBIN 28.9 PG (28-34); MEAN CORPUSCULAR HGB CONC 33.4 g/dL (30-36); MEAN PLATELET VOLUME 7.9 FL (6.5-11.5); MONOCYTE# 0.2 X10e3 (0-1.0); MONOCYTE% 2.4 % (3.0-12.0); NEUTROPHIL# 6.2 X10e3 (1.5-7.1); NEUTROPHIL% 89.8 % (40-75); PLATELET COUNT 192 X10e3 (140-420); RED BLOOD COUNT 4.92 X10e (3.90-5.30); RED CELL DISTRIBUTION WIDTH 13.8 % (11.0-15.5); WHITE BLOOD COUNT 6.9 X10e3 (4.0-10.5)
[2017-07-22 05:09] LABS: DIFF IND NO
[2017-07-22 05:13] LABS: URINE SOURCE CLEAN CATCH
[2017-07-22 05:20] LABS: INR 1.1; PROTHROMBIN TIME (PATIENT) 11.6 SECONDS (10.0-11.7)
[2017-07-22 05:23] LABS: URINE APPEARANCE SL CLOUDY; URINE BILIRUBIN NEG (NEG); URINE BLOOD NEG (NEG); URINE COLOR YELLOW; URINE GLUCOSE NORM (NORM); URINE KETONE NEG (NEG); URINE LEUKOCYTE ESTERASE 1+ (NEG); URINE NITRATE POS (NEG); URINE PROTEIN NEG (NEG); URINE SPECIFIC GRAVITY 1.005 (1.003-1.035); URINE UROBILINOGEN NORM (NORM)
[2017-07-22 05:45] LABS: ALBUMIN SERUM 4.6 g/dL (3.5-5.0); BILIRUBIN, DIRECT 1.6 mg/dL (0.0-0.2); BILIRUBIN,INDIRECT 1.5 mg/dL (0.0-0.9); BILIRUBIN,TOTAL 3.1 mg/dL (0.2-2.0); BUN/CREATININE RATIO 13.75; CREATININE SERUM 0.8 mg/dL (0.6-1.4); GLOM FILT RATE Estimated 72.7 mL/min (>60); MAGNESIUM 1.7 mg/dL (1.6-3.0); PHOSPHOROUS 1.9 mg/dL (2.5-4.6); POTASSIUM 3.5 mmol/L (3.5-5.1)
[2017-07-22 05:49] LABS: CULTURE INDICATED? YES; U HYALINE CASTS AUWI 0-2 /[LPF]; URBCS1 AUWI 0-2 /[HPF] (0-2); URINE BACTERIA AUWI 2+ (NEGATIVE); URINE SQUAMOUS EPITHELIAL CELL NONE SEEN /[HPF]
[2017-07-22 07:13] LABS: POC - CKMB 1.8 ng/mL (0.0-7.9); POC - TROPONIN <0.05 ng/mL (<=0.05)
[2017-07-23 04:45] LABS: HEMATOCRIT 34.7 % (35.0-45.0); MEAN CELL VOLUME 88.4 FL (83-96); MEAN CORPUSCULAR HEMOGLOBIN 29.1 PG (28-34); MEAN CORPUSCULAR HGB CONC 32.9 g/dL (30-36); MEAN PLATELET VOLUME 8.1 FL (6.5-11.5); RED BLOOD COUNT 3.92 X10e (3.90-5.30); RED CELL DISTRIBUTION WIDTH 14.3 % (11.0-15.5)
[2017-07-23 04:52] LABS: HEMOGLOBIN 11.4 gm/dL (12.0-16.0); WHITE BLOOD COUNT 11.3 X10e3 (4.0-10.5)
[2017-07-23 05:01] LABS: INR 1.2; PROTHROMBIN TIME (PATIENT) 13.2 SECONDS (10.0-11.7)
[2017-07-23 06:09] LABS: PROCALCITONIN 7.33 NG/ML
[2017-07-23 06:29] LABS: ALBUMIN SERUM 3.2 g/dL (3.5-5.0); BILIRUBIN,TOTAL 1.3 mg/dL (0.2-2.0); CALCIUM SERUM 8.3 mg/dL (8.4-10.2); CREATININE SERUM 0.6 mg/dL (0.6-1.4); GLOM FILT RATE Estimated 89.8 mL/min (>60); POTASSIUM 3.3 mmol/L (3.5-5.1)
[2017-07-24 05:40] LABS: BASOPHIL# 0.1 X10e3 (0-0.3); BASOPHIL% 0.7 % (0-2.5); EOSINOPHIL# 0.1 X10e3 (0-0.7); EOSINOPHIL% 0.6 % (0.0-7.0); HEMATOCRIT 36.8 % (35.0-45.0); LYMPHOCYTE# 1.5 X10e3 (1.0-3.5); LYMPHOCYTE% 12.2 % (17.0-45.0); MEAN CELL VOLUME 87.1 FL (83-96); MEAN CORPUSCULAR HEMOGLOBIN 28.3 PG (28-34); MEAN CORPUSCULAR HGB CONC 32.5 g/dL (30-36); MEAN PLATELET VOLUME 8.2 FL (6.5-11.5); MONOCYTE# 1.2 X10e3 (0-1.0); MONOCYTE% 9.7 % (3.0-12.0); NEUTROPHIL# 9.2 X10e3 (1.5-7.1); NEUTROPHIL% 76.8 % (40-75); PLATELET COUNT 204 X10e3 (140-420); RED BLOOD COUNT 4.23 X10e (3.90-5.30); RED CELL DISTRIBUTION WIDTH 14.2 % (11.0-15.5)
[2017-07-24 05:45] LABS: DIFF IND NO
[2017-07-24 06:18] LABS: ALBUMIN SERUM 3.5 g/dL (3.5-5.0); ALKALINE PHOSPHATASE 139 U/L (32-92); ALT (SGPT) 206 U/L (10-40); AST (SGOT) 91 U/L (10-42); CALCIUM SERUM 8.4 mg/dL (8.4-10.2); CARBON DIOXIDE 26 mmol/L (22-31); CHLORIDE 104 mmol/L (100-111); CREATININE SERUM 0.6 mg/dL (0.6-1.4); GLOM FILT RATE Estimated 89.8 mL/min (>60); GLUCOSE FASTING 129 mg/dL (70-110); POTASSIUM 3.3 mmol/L (3.5-5.1); PROTEIN TOTAL SERUM 6.7 g/dL (6.0-8.3); SODIUM 137 mmol/L (135-145)
[2017-07-24 06:19] LABS: BLOOD UREA NITROGEN <5 mg/dL (9-23); BUN/CREATININE RATIO 8.33
[2017-07-25 06:40] LABS: HEMATOCRIT 37.3 % (35.0-45.0); HEMOGLOBIN 12.5 gm/dL (12.0-16.0); MEAN CELL VOLUME 86.8 FL (83-96); MEAN CORPUSCULAR HEMOGLOBIN 29.2 PG (28-34); MEAN CORPUSCULAR HGB CONC 33.6 g/dL (30-36); MEAN PLATELET VOLUME 8.6 FL (6.5-11.5); RED BLOOD COUNT 4.29 X10e (3.90-5.30); RED CELL DISTRIBUTION WIDTH 14.3 % (11.0-15.5); WHITE BLOOD COUNT 7.5 X10e3 (4.0-10.5)
[2017-07-25 07:21] LABS: ALBUMIN SERUM 3.6 g/dL (3.5-5.0); ALKALINE PHOSPHATASE 127 U/L (32-92); ALT (SGPT) 136 U/L (10-40); AST (SGOT) 40 U/L (10-42); BILIRUBIN,TOTAL 0.9 mg/dL (0.2-2.0); CALCIUM SERUM 8.9 mg/dL (8.4-10.2); CARBON DIOXIDE 25 mmol/L (22-31); CHLORIDE 103 mmol/L (100-111); CREATININE SERUM 0.5 mg/dL (0.6-1.4); GLOM FILT RATE Estimated 95.4 mL/min (>60); GLUCOSE FASTING 128 mg/dL (70-110); MAGNESIUM 1.6 mg/dL (1.6-3.0); PHOSPHOROUS 1.8 mg/dL (2.5-4.6); POTASSIUM 3.1 mmol/L (3.5-5.1); SODIUM 138 mmol/L (135-145)
[2017-07-25 07:22] LABS: BLOOD UREA NITROGEN <5 mg/dL (9-23)
[2017-07-25] MEDS ORDERED: OMNICEF300 M1 PO (16:44)
== END 2017-07-25 18:12 | disposition home or self-care (01) | DRG 871 ==
LOC: CED 04:32 → CEDOF 06:36 → CED 06:36 → CEDOF 06:37 → C3A PCU 07:39 → C2A 07-24 16:07
PROVIDERS: Emergency Medicine; Family Medicine; Internal Medicine
PROC: 0FPB8DZ Removal of Intraluminal Device from Hepatobiliary Duct, Via Natural or Artificial Opening Endoscopic (ICD-10-PCS; principal; 2017-07-22)
PROC: 0F798ZZ Dilation of Common Bile Duct, Via Natural or Artificial Opening Endoscopic (ICD-10-PCS; 2017-07-22)
DX: A41.51 Sepsis due to Escherichia coli [E. coli] (principal); G92 Toxic encephalopathy; K83.0 Cholangitis; E44.0 Moderate protein-calorie malnutrition; N39.0 Urinary tract infection, site not specified; R65.20 Severe sepsis without septic shock; I10 Essential (primary) hypertension; E78.5 Hyperlipidemia, unspecified; E03.9 Hypothyroidism, unspecified; K21.9 Gastro-esophageal reflux disease without esophagitis; F32.9 Major depressive disorder, single episode, unspecified; F41.9 Anxiety disorder, unspecified; Z90.710 Acquired absence of both cervix and uterus; Z90.49 Acquired absence of other specified parts of digestive tract; D72.829 Elevated white blood cell count, unspecified; B96.1 Klebsiella pneumoniae [K. pneumoniae] as the cause of diseases classified elsewhere; B96.20 Unspecified Escherichia coli [E. coli] as the cause of diseases classified elsewhere; E87.6 Hypokalemia; A41.59 Other Gram-negative sepsis; K58.9 Irritable bowel syndrome, unspecified; Z68.26 Body mass index [BMI] 26.0-26.9, adult; Z46.59 Encounter for fitting and adjustment of other gastrointestinal appliance and device; Z87.440 Personal history of urinary (tract) infections; Z79.899 Other long term (current) drug therapy
CPT/HCPCS: 36415; 70450; 71010; 74177; 74330; 80048; 80053; 80076; 81003; 82140; 82150; 82308; 82553; 82947; 83605; 83690; 83735; 84100; 84484; 85025; 85027; 85379; 85610; 85730; 87040; 87077; 87086; 87088; 87186; 93005; 94760; 97116; 97161; 97165; 97530; 99291; G8978-GP; G8979-GP; G8987-GO; G8988-GO; G8989-GO; J0456; J0696; J1170; J1956; J2270; J2543; J3010; J3370; Q9967